=== PATIENT | female | born 1995 | race Caucasian/White ===

== ENCOUNTER 2017-09-07 01:15 | Emergency (ER) | payer OTHER, SELFPAY ==
[2017-09-07 01:20] VITALS: BP 135/69; PULSE 106; RESP 16; TEMP 36.6; O2SAT 99; BMI 29.2
--- NOTE | 2017-09-07 01:49 | HMH.EDEAR ---
ED Disposition Clinical Impression: Otitis media Qualifiers: Otitis media type: unspecified Chronicity: acute Qualified Code(s): H66.90 - Otitis media, unspecified, unspecified ear Disposition: Home, Self-Care Condition on Discharge: Good Instructions: DI for Ear Pain-Adult Additional Instructions: use meds and see pcp for follow up Prescriptions: cephALEXin [Keflex 500mg Cap] 500 mg PO TID #30 cap - Critical Care Critical Care Time: No Attestation: On 09/07/17, the high probability of a clinically significant, sudden or life threatening deterioration of the following system(s) required my full and direct attention, intervention and personal management. The time I documented below is in addition to time spent performing reported procedures but includes the following listed in this critical care notation. Medical Decision Making - Medical Records Medical records reviewed: Yes: I reviewed the patient's medical records. Vital Signs: 09/07/17 01:20 Temperature 97.8 F Temperature Source Oral Pulse Rate [Right Brachial] 106 H Respiratory Rate 16 Blood Pressure [Right Arm] 135/69 Blood Pressure Mean [Right Arm] 91 02 Sat by Pulse Oximetry 99 Oxygen Delivery Method Room Air - Alec Inquiry Pt receiving controlled substance: No Ear HPI - General Chief complaint: Ear Stated complaint: Pain in right ear Time Seen by Provider: 09/07/17 01:49 Mode of Arrival: Ambulatory Source of Information: Patient, Significant Other, Medical Record Limitations: No Limitations Description of Symptoms (Recalled from ER Triage Doc. by RN): RIGHT EAR PAIN - History of Present Illness HPI Narrative: over the last 3 days - pt with rt ear pain with no d/c MD Complaint: ear pain Location: right ear Duration: constant Severity: moderate Relieving factors: nothing Discharge from ear: no Treatment prior to arrival: none - Related Data Previous Rx's Medication Instructions Recorded cephALEXin [Keflex 500mg Cap] 500 mg PO TID #30 cap 09/07/17 Allergies Allergy/AdvReac Type Severity Reaction Status Date / Time latex [LATEX] Allergy Unknown Verified 09/07/17 01:25 [facility] History I have reviewed the patient's past medical history: Yes - *Social History Alcohol Intake: current Alcohol Intake Frequency:: a few times a month - Psychiatric History Expresses thoughts of harming self/others: None Suicide Plan Description: No Plan ROS Obtained: Yes All systems reviewed & no additional complaints - Constitutional Constitutional: Denies fever(s) - Eyes Eyes: Denies change in vision - ENT Ears, Nose, Mouth, and Throat: Reports as per HPI, Denies ear discharge, Reports otalgia, Denies sore throat - Cardiovascular Cardiovascular: Denies chest pain, Denies chest pain at rest - Respiratory Respiratory: No cough - Integumentary/Breasts Skin/Breast: Denies rash - Neurologic Neurologic: Denies dizziness Physical Exam - General General appearance: alert, in no apparent distress - Head Head exam: atraumatic - Eye Eye exam: Present: PERRL, EOMI - ENT ENT exam: Present: mucous membranes moist - Expanded ENT Exam External ear exam: Present: other (preauriculat carlene tenderness/parotid ok) TM/Canal exam: Left TM: erythema, Bilateral TM: effusion Throat exam: Present: normal inspection - Neck Neck exam: Present: trachea midline - Respiratory Respiratory exam: Absent: respiratory distress - Cardiovascular Cardiovascular exam: Present: regular rate - Neurological Exam Neurological exam: Present: alert, oriented X3, CN II-XII intact - Skin Skin exam: Absent: rash
--- NOTE | 2017-09-07 01:52 | ED_ITS ---
ED Disposition Clinical Impression: Otitis media Qualifiers: Otitis media type: unspecified Chronicity: acute Qualified Code(s): H66.90 - Otitis media, unspecified, unspecified ear Disposition: Home, Self-Care Condition on Discharge: Good Instructions: DI for Ear Pain-Adult Additional Instructions: use meds and see pcp for follow up Prescriptions: cephALEXin [Keflex 500mg Cap] 500 mg PO TID #30 cap - Critical Care Critical Care Time: No Attestation: On 09/07/17, the high probability of a clinically significant, sudden or life threatening deterioration of the following system(s) required my full and direct attention, intervention and personal management. The time I documented below is in addition to time spent performing reported procedures but includes the following listed in this critical care notation. Medical Decision Making - Medical Records Medical records reviewed: Yes: I reviewed the patient's medical records. Vital Signs: 09/07/17 01:20 Temperature 97.8 F Temperature Source Oral Pulse Rate [Right Brachial] 106 H Respiratory Rate 16 Blood Pressure [Right Arm] 135/69 Blood Pressure Mean [Right Arm] 91 02 Sat by Pulse Oximetry 99 Oxygen Delivery Method Room Air - Alec Inquiry Pt receiving controlled substance: No Ear HPI - General Chief complaint: Ear Stated complaint: Pain in right ear Time Seen by Provider: 09/07/17 01:49 Mode of Arrival: Ambulatory Source of Information: Patient, Significant Other, Medical Record Limitations: No Limitations Description of Symptoms (Recalled from ER Triage Doc. by RN): RIGHT EAR PAIN - History of Present Illness HPI Narrative: over the last 3 days - pt with rt ear pain with no d/c MD Complaint: ear pain Location: right ear Duration: constant Severity: moderate Relieving factors: nothing Discharge from ear: no Treatment prior to arrival: none - Related Data Previous Rx's Medication Instructions Recorded cephALEXin [Keflex 500mg Cap] 500 mg PO TID #30 cap 09/07/17 Allergies Allergy/AdvReac Type Severity Reaction Status Date / Time latex [LATEX] Allergy Unknown Verified 09/07/17 01:25 [facility] History I have reviewed the patient's past medical history: Yes - *Social History Alcohol Intake: current Alcohol Intake Frequency:: a few times a month - Psychiatric History Expresses thoughts of harming self/others: None Suicide Plan Description: No Plan ROS Obtained: Yes All systems reviewed & no additional complaints - Constitutional Constitutional: Denies fever(s) - Eyes Eyes: Denies change in vision - ENT Ears, Nose, Mouth, and Throat: Reports as per HPI, Denies ear discharge, Reports otalgia, Denies sore throat - Cardiovascular Cardiovascular: Denies chest pain, Denies chest pain at rest - Respiratory Respiratory: No cough - Integumentary/Breasts Skin/Breast: Denies rash - Neurologic Neurologic: Denies dizziness Physical Exam - General General appearance: alert, in no apparent distress - Head Head exam: atraumatic - Eye Eye exam: Present: PERRL, EOMI - ENT ENT exam: Present: mucous membranes moist - Expanded ENT Exam External ear exam: Present: other (preauriculat carlene tenderness/parotid ok) TM/Canal exam: Left TM: erythema, Bilateral
== END 2017-09-07 02:05 | disposition home or self-care (01) ==
PROVIDERS: Emergency Provider Emergency Medicine; Family Provider Nurse Practitioner Family
DX: H66.90 Otitis media, unspecified, unspecified ear (principal)
CPT/HCPCS: 99282

== ENCOUNTER 2017-10-31 20:14 | Observation (INO) | payer OTHER, SELFPAY ==
[2017-10-31 20:35] VITALS: BP 149/83; PULSE 92; RESP 20; TEMP 36.6; O2SAT 99; BMI 29.2
[2017-10-31 20:41] LABS: Apearance,Urine Clear (Clear); Color,Urine Yellow (Yellow); Specific Gravity, Urine >= 1.030 (1.005-1.030)
[2017-10-31 20:42] LABS: Bilirubin,Urine 1+ (Negative); Blood, Urine Trace (Negative); Glucose,Urine (UA) Negative (Negative); Ketones,Urine 15 (Negative); Protein,Urine 1+ (Negative); UTC Leukocyte Esterase,Urine Negative (Negative); UTC Nitrate,Urine Negative (Negative); Urobilinogen,Urine 0.2 EU/dl (0.2)
--- NOTE | 2017-10-31 20:46 | PC.NURSE ---
Triage nurse alerted me to pt's CC and u/a. PMHx kidney stones. Low back pain started last night. Radiating into abdomen. 600mg ibuprofen hasn't phased it . Hx tubal. LMP 2 weeks ago. No UTI symptoms. Pain 8/10, sharp. Discussed possible differentials and [facility] guidelines. Pt agreeable to transfer to ER. Report called to [facility]. Bed 9 available.
[2017-10-31 20:58] VITALS: BP 145/88; PULSE 89; RESP 20; TEMP 37.1; O2SAT 97; BMI 29.2
--- NOTE | 2017-10-31 21:03 | CT_ITS ---
CT abdomen pelvis wo con CLINICAL INDICATION: Abdominal tenderness and bloating, hematuria ITS.REASON: abd pain ORDERING PHYSICIAN: Cassius Cardenas MD PATIENT AGE: 22 years COMPARISON: 11/21/2015 TECHNIQUE: Axial images obtained with sagittal and coronal reformats. All CT scans at the facility use one or more dose reduction, viz: automated exposure control; ma/kV adjustment per patient size (including targeted exams where dose is matched to indication; i.e. head); or iterative reconstruction technique. PROCEDURE: Oral Contrast: None IV Contrast: None . FINDINGS: Lung bases are clear. The liver, gallbladder, spleen, adrenal glands, pancreas, and kidneys have an unremarkable unenhanced CT appearance. Unremarkable appendix. No pelvic mass or focal inflammatory change. Bilateral tubal ligation clips are present. The uterus is anteverted and slightly bulky. Isodensity in the left ovary may be related to ovarian cyst. Ultrasound performed. No acute bony anomalies. IMPRESSION: 1. No definite acute finding. 2. Possible left ovarian cyst
[2017-10-31 21:33] LABS: Basophils % 0.3 % (0.1-2.0); Eosinophils # 0.1 K/mm3 (0.0-0.4); Hematocrit 43.6 % (37.0-47.0); Hemoglobin 14.8 g/dL (12.2-16.2); Lymphocytes % 15.5 K/mm3 (10-50); Mean Corpuscular Hemoglobin 30.9 pg (27.0-31.2); Mean Corpuscular Volume 90.9 fl (81-99); Mean Platelet Volume 7.4 fl (7.4-10.4); Monocytes # 0.6 K/mm3 (0.1-1.0); Monocytes % 4.9 % (1.7-9.3); Neutrophils # 10.1 K/mm3 (1.8-7.8); Neutrophils % 78.2 % (37.0-80.0); Platelet Count 323 K/mm3 (142-424); Red Cell Distribution Width 12.6 % (11.5-17.5); White Blood Count 12.9 K/mm3 (4.8-10.8)
[2017-10-31 21:48] LABS: Lipase 126 u/L (73-393)
[2017-10-31 21:56] LABS: Alanine Aminotransferase 33 U/L (12-78); Albumin Level 4.1 gm/dL (3.4-5.0); Alkaline Phosphatase 96 U/L (46-116); Amylase 64 U/L (25-125); Anion Gap 15.4 mEq/L (5-15); Aspartate Amino Transferase 18 U/L (15-37); Bilirubin,Total 0.3 mg/dL (0.2-1.0); Blood Urea Nitrogen 17 mg/dL (7-18); Calcium 9.2 mg/dL (8.5-10.1); Carbon Dioxide 25 mmol/L (21.0-32.0); Chloride 102 mmol/L (98-107); Creatinine Clearance Estimated 151 mL/min (0-300); Estimated Glomerular Filt Rate 103 ml/min (>60); GFR (African American) 124 ML/MIN (>60); Globulin 4.1 gm/dl (1.3-3.2); Glucose 123 mg/dL (74-106); Potassium 3.4 mmoL/L (3.5-5.1); Sodium 139 mmol/L (136-145); Total Protein,Serum 8.2 gm/dL (6.4-8.2)
--- NOTE | 2017-10-31 22:37 | HMH.EDABDPAI ---
ED Disposition Clinical Impression: RLQ abdominal pain, Tubal ligation status, Dehydration Disposition: Home, Self-Care Condition on Discharge: Fair Instructions: DI for Acute Abdomen Referrals: Alpa Benjamin [Primary Care Provider] - - Critical Care Critical Care Time: No Attestation: On 10/31/17, the high probability of a clinically significant, sudden or life threatening deterioration of the following system(s) required my full and direct attention, intervention and personal management. The time I documented below is in addition to time spent performing reported procedures but includes the following listed in this critical care notation. Medical Decision Making - Alec Inquiry Pt receiving controlled substance: No Alec was queried for this patient: No Vital Signs: 10/31/17 20:35 10/31/17 20:58 Temperature 97.9 F 98.7 F Temperature Source Temporal Artery Scan Oral Pulse Rate [Brachial] 92 H 89 Respiratory Rate 20 20 Blood Pressure [Right Arm] 149/83 145/88 Blood Pressure Mean [Right Arm] 105 107 Blood Pressure Source [Right Arm] Automatic Cuff Blood Pressure Position [Right Arm] Sitting Sitting 02 Sat by Pulse Oximetry 99 97 - Lab Data Lab Results 10/31/17 20:38: Urine Color Yellow, Urine Appearance Clear, Urine pH 6.0, Ur Specific [place] >= 1.030, Urine Protein 1+, Urine Glucose (UA) Negative, Urine Ketones 15, Urine Blood Trace, Urine Nitrate Negative, Urine Bilirubin 1+ A, Urine Urobilinogen 0.2, Ur Leukocyte Esterase Negative 10/31/17 21:15: WBC 12.9 H, RBC 4.80, Hgb 14.8, Hct 43.6, MCV 90.9, MCH 30.9, MCHC 34.0, RDW 12.6, Plt Count 323, MPV 7.4, Neut % (Auto) 78.2, Lymph % (Auto) 15.5, [place] % (Auto) 4.9, Eos % (Auto) 1.0, Baso % (Auto) 0.3, Neut # (Auto) 10.1 H, Lymph # (Auto) 2.0, [place] # (Auto) 0.6, Eos # (Auto) 0.1, Baso # (Auto) 0.0 10/31/17 21:15: Sodium 139, Potassium 3.4 L, Chloride 102, Carbon Dioxide 25, Anion Gap 15.4 H, BUN 17, Creatinine 0.70, Estimated Creat Clear 151, Estimated GFR 103, Est GFR ( Amer) 124, Glucose 123 H, Calcium 9.2, Total Bilirubin 0.3, AST 18, ALT 33, Alkaline Phosphatase 96, Total Protein 8.2, Albumin 4.1, Globulin 4.1 H, Albumin/Globulin Ratio 1.0 L, Amylase 64 10/31/17 21:15: Lipase 126 Result diagrams: 10/31/17 21:15 10/31/17 21:15 Orders (Tests/Meds): ED MEDICATIONS Discontinued Medications Generic Name Dose Route Start Last Admin Trade Name Freq PRN Reason Stop Dose Admin Sodium Chloride 1,000 mls @ 999 mls/hr 10/31/17 21:15 10/31/17 21:14 Sod Chlor 0.9% 1000ml Bag IV 10/31/17 22:15 999 mls/hr .Q1H1M GLORIA Administration Ketorolac Tromethamine 30 mg 10/31/17 21:03 10/31/17 21:14 Toradol 30mg/Ml Vial IV 10/31/17 21:04 30 mg ONCE ONE Administration Ondansetron HCl 4 mg 10/31/17 21:03 10/31/17 21:14 Zofran 4mg/2ml Vial IV 10/31/17 21:04 4 mg ONCE ONE Administration ORDERS Category Date Time Status CT abdomen pelvis wo con Stat Cat Scan 10/31/17 21:03 Taken Urine Culture Stat Micro 10/31/17 20:30 Received - CT Data CT Scan: Abdomen, Pelvis Time Received: 22:48 Preliminary Findings: Normal/NAD Medical Decision Narrative: I discussed with Dr. Leal who agreed to admit the patient for observation repeat labs in the morning. Abdominal Pain HPI - General Chief Complaint: Abdominal Pain Stated Complaint: BACK PAIN AND STOMACH Time Seen by Provider: 10/31/17 22:00 Mode of Arrival: Family Vehicle Source of Information: Patient Limitations: No Limitations Description of Symptoms (Recalled from ER Triage Doc. by RN): lower back pain, abd pain and bloating, nausea - History of Present Illness HPI narrative: 22 years old white female with history of kidney stone who developed a right sided abdominal pain radiating to the right lower quadrant with no vomiting no diarrhea. She presented to the to the ED underwent a CT scan that was negative for kidney stone. She denies havin
--- NOTE | 2017-10-31 22:42 | ED_ITS ---
ED Disposition Clinical Impression: RLQ abdominal pain, Tubal ligation status, Dehydration Disposition: Home, Self-Care Condition on Discharge: Fair Instructions: DI for Acute Abdomen Referrals: Alpa Benjamin [Primary Care Provider] - - Critical Care Critical Care Time: No Attestation: On 10/31/17, the high probability of a clinically significant, sudden or life threatening deterioration of the following system(s) required my full and direct attention, intervention and personal management. The time I documented below is in addition to time spent performing reported procedures but includes the following listed in this critical care notation. Medical Decision Making - Alec Inquiry Pt receiving controlled substance: No Alec was queried for this patient: No Vital Signs: 10/31/17 20:35 10/31/17 20:58 Temperature 97.9 F 98.7 F Temperature Source Temporal Artery Scan Oral Pulse Rate [Brachial] 92 H 89 Respiratory Rate 20 20 Blood Pressure [Right Arm] 149/83 145/88 Blood Pressure Mean [Right Arm] 105 107 Blood Pressure Source [Right Arm] Automatic Cuff Blood Pressure Position [Right Arm] Sitting Sitting 02 Sat by Pulse Oximetry 99 97 - Lab Data Lab Results 10/31/17 20:38: Urine Color Yellow, Urine Appearance Clear, Urine pH 6.0, Ur Specific [place] >= 1.030, Urine Protein 1+, Urine Glucose (UA) Negative, Urine Ketones 15, Urine Blood Trace, Urine Nitrate Negative, Urine Bilirubin 1+ A, Urine Urobilinogen 0.2, Ur Leukocyte Esterase Negative 10/31/17 21:15: WBC 12.9 H, RBC 4.80, Hgb 14.8, Hct 43.6, MCV 90.9, MCH 30.9, MCHC 34.0, RDW 12.6, Plt Count 323, MPV 7.4, Neut % (Auto) 78.2, Lymph % (Auto) 15.5, [place] % (Auto) 4.9, Eos % (Auto) 1.0, Baso % (Auto) 0.3, Neut # (Auto) 10.1 H, Lymph # (Auto) 2.0, [place] # (Auto) 0.6, Eos # (Auto) 0.1, Baso # (Auto) 0.0 10/31/17 21:15: Sodium 139, Potassium 3.4 L, Chloride 102, Carbon Dioxide 25, Anion Gap 15.4 H, BUN 17, Creatinine 0.70, Estimated Creat Clear 151, Estimated GFR 103, Est GFR ( Amer) 124, Glucose 123 H, Calcium 9.2, Total Bilirubin 0.3, AST 18, ALT 33, Alkaline Phosphatase 96, Total Protein 8.2, Albumin 4.1, Globulin 4.1 H, Albumin/Globulin Ratio 1.0 L, Amylase 64 10/31/17 21:15: Lipase 126 Result diagrams: 10/31/17 21:15 10/31/17 21:15 Orders (Tests/Meds): ED MEDICATIONS Discontinued Medications Generic Name Dose Route Start Last Admin Trade Name Freq PRN Reason Stop Dose Admin Sodium Chloride 1,000 mls @ 999 mls/hr 10/31/17 21:15 10/31/17 21:14 Sod Chlor 0.9% 1000ml Bag IV 10/31/17 22:15 999 mls/hr .Q1H1M GLORIA Administration Ketorolac Tromethamine 30 mg 10/31/17 21:03 10/31/17 21:14 Toradol 30mg/Ml Vial IV 10/31/17 21:04 30 mg ONCE ONE Administration Ondansetron HCl 4 mg 10/31/17 21:03 10/31/17 21:14 Zofran 4mg/2ml Vial IV 10/31/17 21:04 4 mg ONCE ONE Administration ORDERS Category Date Time Status CT abdomen pelvis wo con Stat Cat Scan 10/31/17 21:03 Taken Urine Culture Stat Micro 10/31/17 20:30 Received - CT Data CT Scan: Abdomen, Pelvis Time Received: 22:48 Preliminary Findings: Normal/NAD Medical Decision Narrative: I discussed with Dr. Leal who agreed to admit the patient for observation repeat labs in the morning. Abdominal Pain HPI
[2017-10-31 22:51] VITALS: BP 127/70; PULSE 80; RESP 20; TEMP 36.6
[2017-10-31 23:15] VITALS: BP 118/71; PULSE 76; RESP 16; TEMP 36.7; O2SAT 99; BMI 29.9
[2017-11-01 04:12] VITALS: BP 99/49; PULSE 73; RESP 16; TEMP 36.6; O2SAT 98
--- NOTE | 2017-11-01 05:19 | PC.NURSE ---
Since admission pt has c/o mild abdominal and back pain, medicated per MAR. Lung sounds clear, BS active. VSS. No acute distress noted. Will continue to monitor.
[2017-11-01 07:02] LABS: Basophils % 0.3 % (0.1-2.0); Eosinophils # 0.1 K/mm3 (0.0-0.4); Eosinophils % 0.9 % (0.1-12.0); Hematocrit 39.3 % (37.0-47.0); Lymphocytes # 2.5 K/mm3 (0.7-4.5); Lymphocytes % 24.5 K/mm3 (10-50); Mean Corpuscular HGB Conc 33.1 g/dL (31.8-35.4); Mean Corpuscular Hemoglobin 30.7 pg (27.0-31.2); Mean Corpuscular Volume 92.7 fl (81-99); Mean Platelet Volume 7.6 fl (7.4-10.4); Monocytes # 0.6 K/mm3 (0.1-1.0); Monocytes % 6.1 % (1.7-9.3); Neutrophils # 6.9 K/mm3 (1.8-7.8); Platelet Count 286 K/mm3 (142-424); Red Blood Count 4.24 M/mm3 (4.20-5.40); Red Cell Distribution Width 12.6 % (11.5-17.5); White Blood Count 10.1 K/mm3 (4.8-10.8)
[2017-11-01 07:11] LABS: Blood Urea Nitrogen 15 mg/dL (7-18); Carbon Dioxide 28 mmol/L (21.0-32.0); Chloride 106 mmol/L (98-107); Creatinine Clearance Estimated 190 mL/min (0-300); Creatinine,Serum 0.57 mg/dL (0.55-1.02); Estimated Glomerular Filt Rate 130 ml/min (>60); GFR (African American) 158 ML/MIN (>60); Glucose 87 mg/dL (74-106); Sodium 137 mmol/L (136-145)
[2017-11-01 07:12] LABS: Hemoglobin 13.1 g/dL (12.2-16.2)
--- NOTE | 2017-11-01 07:32 | PC.NURSE ---
REPORT GIVEN TO Vira MORAES W/C
--- NOTE | 2017-11-01 07:38 | HMH.GSHP ---
HPI HPI: This is a 22-year-old female with a complex history of kidney stones who developed right-sided abdominal pain that increased significantly over the past 24 hours. She presented to the emergency department for further evaluation and management. Trace blood was noted on her urinalysis. Her white blood cell count was slightly elevated and she had tenderness in the right lower quadrant. A CT scan revealed no definitive sign of appendicitis and no definitive sign of renal stones. No hematuria. No dysuria. Nausea, but no emesis. No diarrhea or constipation. No fevers. [facility] History Medical History: Reports:: Heart Murmur (WHILE SHE WAS ) Denies:: Cancer, Diabetes Mellitus Type 1, Diabetes Mellitus Type 2, MRSA Laterality Cases: Bilateral: Tonsillectomy Other Surgeries: Yes: Tubal Ligation Amputation: No - *Social History Educational Level: Attended College Smoking Status: Current every day smoker Tobacco Type: cigarettes Alcohol Intake: current Alcohol Intake Frequency:: holidays/special occasions only Occupational Status: unemployed Housing: house Household Members: children - Psychiatric History Expresses thoughts of harming self/others: None Suicide Plan Description: No Plan *Family Hx:: Cancer, Coronary Artery Disease, Diabetes, Heart Attack, Hyperlipidemia, Hypertension, Stroke, Thyroid Disorder Review of Systems - Constitutional Denies anorexia - Eyes Denies change in vision - ENT Denies abnormal hearing - *Cardiovascular Denies chest pain - *Respiratory Denies cough - *Gastrointestinal Reports abdominal pain - *Genitourinary Denies abnormal vaginal bleeding, Denies painful urination, Denies urinary incontinence, Denies urinary urgency - Integumentary/Breasts Denies hair loss - *Neurologic Denies abnormal walking - Psychiatric Denies anxiety - Endocrine Denies cold intolerance - Hematologic/Lymphatic Denies easy bleeding - Allergic/Immunologic Denies GI upset with certain foods Meds Home Medications Medication Instructions Recorded Confirmed Type Fluoxetine HCl [Prozac 20mg 20 mg PO DAILY 10/31/17 10/31/17 History Capsule] Omeprazole Magnesium [Prilosec Otc 20 mg PO DAILY 10/31/17 10/31/17 History 20mg Tab] Thiamine Mononitrate [Vitamin B-1] 200 mg PO QODHS 10/31/17 10/31/17 History Allergies Allergy/AdvReac Type Severity Reaction Status Date / Time latex [LATEX] Allergy Unknown Verified 09/07/17 01:25 Exam Vital signs and Labs for Last 24 Hours: Temp Pulse Resp BP Pulse Ox 97.8 F 73 16 99/49 98 11/01/17 04:12 11/01/17 04:12 11/01/17 04:12 11/01/17 04:12 11/01/17 04:12 Laboratory Results - last 24 hr 11/01/17 06:30: WBC 10.1, RBC 4.24, Hgb 13.1 D, Hct 39.3, MCV 92.7, MCH 30.7, MCHC 33.1, RDW 12.6, Plt Count 286, MPV 7.6, Neut % (Auto) 68.0, Lymph % (Auto) 24.5, [place] % (Auto) 6.1, Eos % (Auto) 0.9, Baso % (Auto) 0.3, Neut # (Auto) 6.9, Lymph # (Auto) 2.5, [place] # (Auto) 0.6, Eos # (Auto) 0.1, Baso # (Auto) 0.0 11/01/17 06:30: Sodium 137, Potassium 4.0, Chloride 106, Carbon Dioxide 28, Anion Gap 7.0, BUN 15, Creatinine 0.57, Estimated Creat Clear 190, Estimated GFR 130, Est GFR ( Amer) 158 D, Glucose 87 D I & O for Last 24 hours: Intake & Output 10/29/17 10/30/17 10/31/17 11/01/17 11:59 11:59 11:59 11:59 Output Total 200 / 200 Balance -200 / -200 Weight 174 lb 4 oz - Constitutional no acute distress - *Routine Neck Exam Present: full ROM - *Routine Respiratory Exam Present: CTA bilaterally. Absent: respiratory distress - *Routine Cardiovascular Exam Present: RRR - *Routine Abdominal Exam Present: soft, tenderness. Absent: rebound, guarding Comments: mild to moderate TTP along right side - *Routine Extremities Exam Present: full ROM. Absent: cyanosis, clubbing, edema - *Routine Neurological Exam Present: alert, oriented X3 - Routine Psychiatric Exam Presen
--- NOTE | 2017-11-01 07:41 | P.CONPHA_ITS ---
[facility] Pharmacy VTE Monitoring - Patient Demographics Admission date: 10/31/17 Report Date: 11/01/17 Time: 07:40 Allergies/Adverse Reactions: Patient Allergies latex [LATEX] Allergy (Unknown, Verified 09/07/17 01:25) Height: 1.63 m Weight: 79.038 kg Patient Problems: Current Active Problems RLQ abdominal pain (Acute) Tubal ligation status (Acute) Dehydration (Acute) - VTE Risk Labs: VTE Related Lab Results Hgb 13.1 g/dL (12.2-16.2) D 11/01/17 06:30 Hct 39.3 % (37.0-47.0) 11/01/17 06:30 Plt Count 286 K/mm3 (142-424) 11/01/17 06:30 BUN 15 mg/dL (7-18) 11/01/17 06:30 Creatinine 0.57 mg/dL (0.55-1.02) 11/01/17 06:30 Estimated Creat Clear 190 mL/min (0-300) 11/01/17 06:30 VTE Score: 2 Clinical Trial Participant: No - Prophylaxis VTE Prophylaxis Ordered?: Yes Types of VTE Prophylaxis: TEDS Knee High Location of Applied Device: Bilateral Lower Extremeties
--- NOTE | 2017-11-01 07:42 | P.HP_ITS ---
HPI HPI: This is a 22-year-old female with a complex history of kidney stones who developed right-sided abdominal pain that increased significantly over the past 24 hours. She presented to the emergency department for further evaluation and management. Trace blood was noted on her urinalysis. Her white blood cell count was slightly elevated and she had tenderness in the right lower quadrant. A CT scan revealed no definitive sign of appendicitis and no definitive sign of renal stones. No hematuria. No dysuria. Nausea, but no emesis. No diarrhea or constipation. No fevers. [facility] History Medical History: Reports:: Heart Murmur (WHILE SHE WAS ) Denies:: Cancer, Diabetes Mellitus Type 1, Diabetes Mellitus Type 2, MRSA Laterality Cases: Bilateral: Tonsillectomy Other Surgeries: Yes: Tubal Ligation Amputation: No - *Social History Educational Level: Attended College Smoking Status: Current every day smoker Tobacco Type: cigarettes Alcohol Intake: current Alcohol Intake Frequency:: holidays/special occasions only Occupational Status: unemployed Housing: house Household Members: children - Psychiatric History Expresses thoughts of harming self/others: None Suicide Plan Description: No Plan *Family Hx:: Cancer, Coronary Artery Disease, Diabetes, Heart Attack, Hyperlipidemia, Hypertension, Stroke, Thyroid Disorder Review of Systems - Constitutional Denies anorexia - Eyes Denies change in vision - ENT Denies abnormal hearing - *Cardiovascular Denies chest pain - *Respiratory Denies cough - *Gastrointestinal Reports abdominal pain - *Genitourinary Denies abnormal vaginal bleeding, Denies painful urination, Denies urinary incontinence, Denies urinary urgency - Integumentary/Breasts Denies hair loss - *Neurologic Denies abnormal walking - Psychiatric Denies anxiety - Endocrine Denies cold intolerance - Hematologic/Lymphatic Denies easy bleeding - Allergic/Immunologic Denies GI upset with certain foods Meds Home Medications Medication Instructions Recorded Confirmed Type Fluoxetine HCl [Prozac 20mg 20 mg PO DAILY 10/31/17 10/31/17 History Capsule] Omeprazole Magnesium [Prilosec Otc 20 mg PO DAILY 10/31/17 10/31/17 History 20mg Tab] Thiamine Mononitrate [Vitamin B-1] 200 mg PO QODHS 10/31/17 10/31/17 History Allergies Allergy/AdvReac Type Severity Reaction Status Date / Time latex [LATEX] Allergy Unknown Verified 09/07/17 01:25 Exam Vital signs and Labs for Last 24 Hours: Temp Pulse Resp BP Pulse Ox 97.8 F 73 16 99/49 98 11/01/17 04:12 11/01/17 04:12 11/01/17 04:12 11/01/17 04:12 11/01/17 04:12 Laboratory Results - last 24 hr 11/01/17 06:30: WBC 10.1, RBC 4.24, Hgb 13.1 D, Hct 39.3, MCV 92.7, MCH 30.7, MCHC 33.1, RDW 12.6, Plt Count 286, MPV 7.6, Neut % (Auto) 68.0, Lymph % (Auto) 24.5, [place] % (Auto) 6.1, Eos % (Auto) 0.9, Baso % (Auto) 0.3, Neut # (Auto) 6.9 , Lymph # (Auto) 2.5, [place] # (Auto) 0.6, Eos # (Auto) 0.1, Baso # (Auto) 0.0 11/01/17 06:30: Sodium 137, Potassium 4.0, Chloride 106, Carbon Dioxide 28, Anion Gap 7.0, BUN 15, Creatinine 0.57, Estimated Creat Clear 190, Estimated GFR 130, Est GFR ( Amer) 158 D, Glucose 87 D I & O for Last 24 hours: Intake & Output 10/29/17 10/30/17 10/31/17 11/01/17 11:59 11:59 11:59 11:59
[2017-11-01 07:53] VITALS: O2SAT 98
--- NOTE | 2017-11-01 07:54 | PC.NURSE ---
report to a bout rn
[2017-11-01 08:00] VITALS: BP 107/58; PULSE 67; RESP 16; TEMP 36.6; O2SAT 98
--- NOTE | 2017-11-01 13:10 | P.DS_ITS ---
General - General Admission date: 10/31/17 Discharge date: 11/01/17 HPI HPI: This is a 22-year-old female with a complex history of kidney stones who developed right-sided abdominal pain that increased significantly over the past 24 hours. She presented to the emergency department for further evaluation and management. Trace blood was noted on her urinalysis. Her white blood cell count was slightly elevated and she had tenderness in the right lower quadrant. A CT scan revealed no definitive sign of appendicitis and no definitive sign of renal stones. No hematuria. No dysuria. Nausea, but no emesis. No diarrhea or constipation. No fevers. Hospital Course Hospital Course: The patient convalesced well. Her white blood cell count was normal in the morning of November 01. She was treated with Toradol for possible recently passed renal stone and her abdominal pain improved. She remained afebrile with stable and normal vital signs. She was deemed appropriate for discharge on the afternoon of November 01. Objective Vital signs: Temp Pulse Resp BP Pulse Ox 97.8 F 67 16 107/58 98 11/01/17 08:00 11/01/17 08:00 11/01/17 08:00 11/01/17 08:00 11/01/17 08:00 Results Labs on day of discharge: Labs from last 24 hours 11/01/17 11/01/17 06:30 06:30 WBC 10.1 RBC 4.24 Hgb 13.1 D Hct 39.3 MCV 92.7 MCH 30.7 MCHC 33.1 RDW 12.6 Plt Count 286 MPV 7.6 Neut % (Auto) 68.0 Lymph % (Auto) 24.5 [place] % (Auto) 6.1 Eos % (Auto) 0.9 Baso % (Auto) 0.3 Neut # (Auto) 6.9 Lymph # (Auto) 2.5 [place] # (Auto) 0.6 Eos # (Auto) 0.1 Baso # (Auto) 0.0 Sodium 137 Potassium 4.0 Chloride 106 Carbon Dioxide 28 Anion Gap 7.0 BUN 15 Creatinine 0.57 Estimated Creat Clear 190 Estimated GFR 130 Est GFR ( Amer) 158 D Glucose 87 D DS: Diagnosis - Discharge Diagnosis (1) RLQ abdominal pain Status: Acute Discharge Plan - Patient Discharge Instructions ACTIVITY: Continue current activity DIET: advance to your usual diet - Follow up Plan Follow up with: Cassius Cardenas MD [Staff Physician] - 11/06/17 Disposition: Home, Self-Halfway Medications: Home Medications Medication Instructions Recorded Confirmed Type Fluoxetine HCl [Prozac 20mg 20 mg PO DAILY 10/31/17 10/31/17 History Capsule] Omeprazole Magnesium [Prilosec Otc 20 mg PO DAILY 10/31/17 10/31/17 History 20mg Tab] Thiamine Mononitrate [Vitamin B-1] 200 mg PO QODHS 10/31/17 10/31/17 History Prescriptions/Medication Reconciliation: Continue Thiamine Mononitrate [Vitamin B-1] 200 mg PO QODHS Omeprazole Magnesium [Prilosec Otc 20mg Tab] 20 mg PO DAILY Fluoxetine HCl [Prozac 20mg Capsule] 20 mg PO DAILY
== END 2017-11-01 14:33 | disposition home or self-care (01) ==
LOC: UTC 20:18 → ER 20:50 → 2ND 22:54
PROVIDERS: Nurse Practitioner Family; Admitting Provider Surgery; Emergency Provider Emergency Medicine; Family Provider Nurse Practitioner Family; PCP Nurse Practitioner Family; Visit Provider Surgery
DX: N20.0 Calculus of kidney (principal); R10.31 Right lower quadrant pain; E86.0 Dehydration; Z87.442 Personal history of urinary calculi; Z91.040 Latex allergy status; F17.210 Nicotine dependence, cigarettes, uncomplicated; Z80.9 Family history of malignant neoplasm, unspecified; Z82.49 Family history of ischemic heart disease and other diseases of the circulatory system; Z83.3 Family history of diabetes mellitus; Z83.49 Family history of other endocrine, nutritional and metabolic diseases; Z82.3 Family history of stroke; Z79.899 Other long term (current) drug therapy
CPT/HCPCS: 36415; 74176; 80048; 80053; 81003; 82150; 83690; 85025; 87086; 96365; 96375; 99284; G0378; J2405

== ENCOUNTER 2017-11-03 02:45 | Emergency (ER) | payer OTHER, SELFPAY ==
[2017-11-03 02:46] VITALS: BP 145/85; PULSE 95; RESP 14; TEMP 36.7; O2SAT 97; BMI 29.8
[2017-11-03 03:07] LABS: Appearance,Urine CLEAR (Clear); Color,Urine YELLOW (Yellow); Glucose,Urine (UA) Negative (Negative); Microscopic, Urine URINE MICROSCOPIC (MICROSCOPIC); PH,Urine 5.5 (5.0-8.5); Protein,Urine Negative (Negative); Specific Gravity, Urine 1.025 (1.005-1.030)
[2017-11-03 03:08] LABS: Bilirubin,Urine Negative (Negative); Blood, Urine TRACE-I (Negative); Ketones,Urine Negative (Negative); Leukocyte Esterase,Urine 1+ (Negative); Nitrate,Urine Negative (Negative); Urobilinogen,Urine 0.2 EU/dl (0.2)
[2017-11-03 03:10] LABS: Urine Pregnancy, HCG Qual. Negative (Negative)
[2017-11-03 03:17] LABS: Basophils % 0.3 % (0.1-2.0); Eosinophils # 0.2 K/mm3 (0.0-0.4); Eosinophils % 1.9 % (0.1-12.0); Hematocrit 42.2 % (37.0-47.0); Hemoglobin 14.2 g/dL (12.2-16.2); Lymphocytes # 2.2 K/mm3 (0.7-4.5); Lymphocytes % 18.9 K/mm3 (10-50); Mean Corpuscular HGB Conc 33.7 g/dL (31.8-35.4); Mean Corpuscular Hemoglobin 30.9 pg (27.0-31.2); Mean Corpuscular Volume 91.6 fl (81-99); Mean Platelet Volume 7.2 fl (7.4-10.4); Monocytes # 0.7 K/mm3 (0.1-1.0); Neutrophils # 8.5 K/mm3 (1.8-7.8); Neutrophils % 72.9 % (37.0-80.0); Platelet Count 318 K/mm3 (142-424); Red Blood Count 4.61 M/mm3 (4.20-5.40); Red Cell Distribution Width 12.4 % (11.5-17.5); White Blood Count 11.7 K/mm3 (4.8-10.8)
[2017-11-03 03:19] LABS: Amorphous Sediment,Urine 1+ /lpf; Mucus,Urine 1+ /lpf; RBC,Urine Occasional #/hpf (0-3)
[2017-11-03 03:29] LABS: Alanine Aminotransferase 30 U/L (12-78); Alkaline Phosphatase 91 U/L (46-116); Amylase 49 U/L (25-125); Anion Gap 12.6 mEq/L (5-15); Aspartate Amino Transferase 19 U/L (15-37); Bilirubin,Total 0.2 mg/dL (0.2-1.0); Blood Urea Nitrogen 16 mg/dL (7-18); Calcium 9.1 mg/dL (8.5-10.1); Carbon Dioxide 27 mmol/L (21.0-32.0); Chloride 102 mmol/L (98-107); Creatinine Clearance Estimated 174 mL/min (0-300); Creatinine,Serum 0.62 mg/dL (0.55-1.02); Estimated Glomerular Filt Rate 118 ml/min (>60); GFR (African American) 143 ML/MIN (>60); Globulin 3.9 gm/dl (1.3-3.2); Glucose 136 mg/dL (74-106); Lipase 110 u/L (73-393); Potassium 3.6 mmoL/L (3.5-5.1); Sodium 138 mmol/L (136-145); Total Protein,Serum 7.9 gm/dL (6.4-8.2)
--- NOTE | 2017-11-03 03:32 | CT_ITS ---
CT abdomen pelvis wo con CLINICAL INDICATION: Constipation and nausea, localized lower abdominal pain ITS.REASON: abd/low back pain ORDERING PHYSICIAN: Anthony Carty MD PATIENT AGE: 22 years COMPARISON: 10/31/2017 TECHNIQUE: Axial images obtained with sagittal and coronal reformats. All CT scans at the facility use one or more dose reduction, viz: automated exposure control; ma/kV adjustment per patient size (including targeted exams where dose is matched to indication; i.e. head); or iterative reconstruction technique. PROCEDURE: Oral Contrast: None IV Contrast: None . FINDINGS: Lung bases are clear. The liver, gallbladder, spleen, adrenal glands, pancreas, kidneys, ureters, and urinary bladder have an unremarkable unenhanced appearance. Unremarkable appendix. Mild amount retained colonic feces. No intestinal obstruction, free air, or focal inflammatory change. Trace amount of free fluid in the pelvis. Bilateral tubal ligation clips are present. No pelvic mass or focal inflammatory change. No acute bony anomalies. Tiny umbilical hernia containing fat. IMPRESSION: 1. No acute finding. 2. Incidental nonacute findings as described above
--- NOTE | 2017-11-03 05:44 | HMH.EDNVD ---
ED Disposition Clinical Impression: Abdominal pain Qualifiers: Abdominal location: unspecified location Qualified Code(s): R10.9 - Unspecified abdominal pain Disposition: Home, Self-Care Condition on Discharge: Good Instructions: DI for Acute Abdomen Additional Instructions: see pcp for follow up Referrals: Alpa Benjamin [Primary Care Provider] - - Critical Care Critical Care Time: No Attestation: On 11/03/17, the high probability of a clinically significant, sudden or life threatening deterioration of the following system(s) required my full and direct attention, intervention and personal management. The time I documented below is in addition to time spent performing reported procedures but includes the following listed in this critical care notation. Medical Decision Making - Medical Records Medical records reviewed: Yes: I reviewed the patient's medical records. - Alec Inquiry Pt receiving controlled substance: No Vital Signs: 11/03/17 02:46 Temperature 98.1 F Temperature Source Oral Pulse Rate [Right Brachial] 95 H Respiratory Rate 14 Blood Pressure [Right Arm] 145/85 Blood Pressure Mean [Right Arm] 105 Blood Pressure Source [Right Arm] Automatic Cuff Blood Pressure Position [Right Arm] Sitting 02 Sat by Pulse Oximetry 97 Oxygen Delivery Method Room Air - Lab Data Lab results reviewed: Yes: I reviewed the patient's lab results. Lab Results 11/03/17 03:00: Urine Color Yellow, Urine Appearance Clear, Urine pH 5.5, Ur Specific [place] 1.025, Urine Protein Negative, Urine Glucose (UA) Negative, Urine Ketones Negative, Urine Blood Trace-i, Urine Nitrate Negative, Urine Bilirubin Negative, Urine Urobilinogen 0.2, Ur Leukocyte Esterase 1+ A, Urine RBC Occasional, Urine WBC 5-10, Ur Squamous Epith Cells 10-20, Amorphous Sediment 1+, Urine Mucus 1+ 11/03/17 03:00: WBC 11.7 H, RBC 4.61, Hgb 14.2, Hct 42.2, MCV 91.6, MCH 30.9, MCHC 33.7, RDW 12.4, Plt Count 318, MPV 7.2 L, Neut % (Auto) 72.9, Lymph % (Auto) 18.9, [place] % (Auto) 6.0, Eos % (Auto) 1.9, Baso % (Auto) 0.3, Neut # (Auto) 8.5 H, Lymph # (Auto) 2.2, [place] # (Auto) 0.7, Eos # (Auto) 0.2, Baso # (Auto) 0.0 11/03/17 03:00: Urine HCG, Qual Negative 11/03/17 03:00: Sodium 138, Potassium 3.6, Chloride 102, Carbon Dioxide 27, Anion Gap 12.6, BUN 16, Creatinine 0.62, Estimated Creat Clear 174, Estimated GFR 118, Est GFR ( Amer) 143, Glucose 136 H, Calcium 9.1, Total Bilirubin 0.2, AST 19, ALT 30, Alkaline Phosphatase 91, Total Protein 7.9, Albumin 4.0, Globulin 3.9 H, Albumin/Globulin Ratio 1.0 L, Amylase 49, Lipase 110 Result diagrams: 11/03/17 03:00 11/03/17 03:00 Orders (Tests/Meds): ORDERS Category Date Time Status CT abdomen pelvis wo con Stat Cat Scan 11/03/17 03:32 Taken Urine Culture Stat Micro 11/03/17 03:00 Received - CT Data CT Scan: Abdomen, Pelvis Time Received: 06:[address] Reviewed: Yes: I have viewed the radiologist's interpretation Preliminary Findings: Normal/NAD Nausea/Vomiting/Diarrhea HPI - General Chief complaint: Abdominal Pain Stated complaint: abdominal pain and lower back pain Time Seen by Provider: 11/03/17 05:44 Mode of Arrival: Ambulatory Source of Information: Patient, Medical Record Limitations: No Limitations Description of Symptoms (Recalled from ER Triage Doc. by RN): Pt c/o abd and lower back pain. Pt advises she was admitted with the same symptoms. C/o periods of nausea denies any vomiting/diarrhea - History of Present Illness HPI Narrative: pt with recent admit for pelvic pain with concern for kidney stone -pt was admitted over night and seen by surg -old ct and surg and ed visit reviewed MD complaint: nausea, abdominal pain Onset (ago): day(s) Location of pain: other (bilat back and pelvis pain) Severity: moderate - Related Data Home Medications Medication Instructions Recorded Confirmed Fluoxetine HCl [Prozac 20mg 20 mg PO DAILY 10/31/17 11/03/17 Capsule
--- NOTE | 2017-11-03 05:59 | ED_ITS ---
ED Disposition Clinical Impression: Abdominal pain Qualifiers: Abdominal location: unspecified location Qualified Code(s): R10.9 - Unspecified abdominal pain Disposition: Home, Self-Care Condition on Discharge: Good Instructions: DI for Acute Abdomen Additional Instructions: see pcp for follow up Referrals: Alpa Benjamin [Primary Care Provider] - - Critical Care Critical Care Time: No Attestation: On 11/03/17, the high probability of a clinically significant, sudden or life threatening deterioration of the following system(s) required my full and direct attention, intervention and personal management. The time I documented below is in addition to time spent performing reported procedures but includes the following listed in this critical care notation. Medical Decision Making - Medical Records Medical records reviewed: Yes: I reviewed the patient's medical records. - Alec Inquiry Pt receiving controlled substance: No Vital Signs: 11/03/17 02:46 Temperature 98.1 F Temperature Source Oral Pulse Rate [Right Brachial] 95 H Respiratory Rate 14 Blood Pressure [Right Arm] 145/85 Blood Pressure Mean [Right Arm] 105 Blood Pressure Source [Right Arm] Automatic Cuff Blood Pressure Position [Right Arm] Sitting 02 Sat by Pulse Oximetry 97 Oxygen Delivery Method Room Air - Lab Data Lab results reviewed: Yes: I reviewed the patient's lab results. Lab Results 11/03/17 03:00: Urine Color Yellow, Urine Appearance Clear, Urine pH 5.5, Ur Specific [place] 1.025, Urine Protein Negative, Urine Glucose (UA) Negative, Urine Ketones Negative, Urine Blood Trace-i, Urine Nitrate Negative, Urine Bilirubin Negative, Urine Urobilinogen 0.2, Ur Leukocyte Esterase 1+ A, Urine RBC Occasional, Urine WBC 5-10, Ur Squamous Epith Cells 10-20, Amorphous Sediment 1+, Urine Mucus 1+ 11/03/17 03:00: WBC 11.7 H, RBC 4.61, Hgb 14.2, Hct 42.2, MCV 91.6, MCH 30.9, MCHC 33.7, RDW 12.4, Plt Count 318, MPV 7.2 L, Neut % (Auto) 72.9, Lymph % (Auto ) 18.9, [place] % (Auto) 6.0, Eos % (Auto) 1.9, Baso % (Auto) 0.3, Neut # (Auto) 8.5 H, Lymph # (Auto) 2.2, [place] # (Auto) 0.7, Eos # (Auto) 0.2, Baso # (Auto) 0.0 11/03/17 03:00: Urine HCG, Qual Negative 11/03/17 03:00: Sodium 138, Potassium 3.6, Chloride 102, Carbon Dioxide 27, Anion Gap 12.6, BUN 16, Creatinine 0.62, Estimated Creat Clear 174, Estimated GFR 118, Est GFR ( Amer) 143, Glucose 136 H, Calcium 9.1, Total Bilirubin 0.2, AST 19, ALT 30, Alkaline Phosphatase 91, Total Protein 7.9, Albumin 4.0, Globulin 3.9 H, Albumin/Globulin Ratio 1.0 L, Amylase 49, Lipase 110 Result diagrams: 11/03/17 03:00 11/03/17 03:00 Orders (Tests/Meds): ORDERS Category Date Time Status CT abdomen pelvis wo con Stat Cat Scan 11/03/17 03:32 Taken Urine Culture Stat Micro 11/03/17 03:00 Received - CT Data CT Scan: Abdomen, Pelvis Time Received: 06:[address] Reviewed: Yes: I have viewed the radiologist's interpretation Preliminary Findings: Normal/NAD Nausea/Vomiting/Diarrhea HPI - General Chief complaint: Abdominal Pain Stated complaint: abdominal pain and lower back pain Time Seen by Provider: 11/03/17 05:44 Mode of Arrival: Ambulatory Source of Information: Patient, Medical Record Limitations: No Limitations Description of Symptoms (Recalled from ER Triage Doc. by RN): Pt c/o abd and lower back pain. Pt advises she was admitted with the same sym
[2017-11-03 06:37] VITALS: BP 117/80; PULSE 70; RESP 14; TEMP 37.1; O2SAT 98
== END 2017-11-03 06:38 | disposition home or self-care (01) ==
PROVIDERS: Emergency Provider Emergency Medicine; Family Provider Nurse Practitioner Family; PCP Nurse Practitioner Family
DX: R10.9 Unspecified abdominal pain (principal); M54.5 Low back pain; R01.1 Cardiac murmur, unspecified
CPT/HCPCS: 74176; 80053; 81001; 81025; 82150; 83690; 85025; 87086; 96365; 96367; 96375; 99283

== ENCOUNTER → 2018-06-18 07:41 | Outpatient (CLI) | payer OTHER, SELFPAY ==
[2018-06-18 07:45] LABS: Adenovirus,PCR Not Detected (NotDetected); Bordetella Pertussis Not Detected (NotDetected); Chlamydophila Pneumoniae, PCR Not Detected (NotDetected); Coronavirus 229E Not Detected (NotDetected); Coronavirus NL63 Not Detected (NotDetected); Coronavirus OC43 Not Detected (NotDetected); Coronovirus HKU1,PCR Not Detected (NotDetected); Human Metapneumovirus Not Detected (NotDetected); Influenza A, PCR Not Detected (NotDetected); Influenza AH1, 2009 Not Detected (NotDetected); Influenza AH1, PCR Not Detected (NotDetected); Influenza AH3,PCR Not Detected (NotDetected); Influenza B, PCR Not Detected (NotDetected); Mycoplasma Pneumoniae, PCR Not Detected (NotDected); Parainfluenza 1, PCR Not Detected (NotDetected); Parainfluenza 2, PCR Not Detected (NotDetected); Parainfluenza 3, PCR Not Detected (NotDetected); Parainfluenza 4, PCR Not Detected (NotDetected); Respiratory Syncytial Virus Not Detected (NotDetected); Rhinovirus/Enterovirus Not Detected (NotDetected)
== END ==
PROVIDERS: PCP Nurse Practitioner Family; Visit Provider Nurse Practitioner Family
DX: J02.9 Acute pharyngitis, unspecified (principal); R51 Headache
CPT/HCPCS: 87486; 87581; 87633; 87798

== ENCOUNTER → 2019-04-07 09:38 | Outpatient (CLI) | payer OTHER, SELFPAY ==
[2019-04-07 10:59] LABS: HCG,Quantitative 869 mIU/mL
[2019-04-09 12:36] LABS: Progesterone 16.8 ng/mL (.)
== END ==
PROVIDERS: Specialist; Visit Provider Nurse Practitioner Obstetrics & Gynecology
DX: Z34.90 Encounter for supervision of normal pregnancy, unspecified, unspecified trimester (principal)
CPT/HCPCS: 36415; 84144; 84702

== ENCOUNTER → 2019-04-14 12:41 | Outpatient (CLI) | payer OTHER, SELFPAY ==
--- NOTE | 2019-04-14 13:02 | US_ITS ---
PROCEDURE: US OB TRANSVAGINAL CLINICAL INDICATION: OB US TV for DATES in early COMPARISON: No exams were available for comparison TECHNIQUE: FINDINGS: There is an intrauterine gestational sac with yolk sac but no pole. 19 mm left ovarian cyst. IMPRESSION: Intrauterine gestational sac and yolk sac but no obvious pole. It may be too early to see a pole at this time. Suggest follow-up exam as well as correlation with beta HCG. Dictated by: Gideon Morin MD 04/14/2019 13:55 Signed by: <Electronically signed by Gideon Morin MD in [facility]> 04/14/2019 13:55
[2019-04-14 13:25] LABS: HCG,Quantitative 7872 mIU/mL
[2019-04-15 07:28] LABS: Progesterone 22.4 ng/mL (.)
== END ==
PROVIDERS: Specialist; Visit Provider Nurse Practitioner Obstetrics & Gynecology
DX: O26.841 Uterine size-date discrepancy, first trimester (principal)
CPT/HCPCS: 36415; 76817; 84144; 84702

== ENCOUNTER → 2019-04-20 10:10 | Outpatient (CLI) | payer OTHER, SELFPAY ==
[2019-04-20 11:18] LABS: Basophils % 0.2 % (0.1-2.0); Eosinophils # 0.2 K/mm3 (0.0-0.4); Eosinophils % 1.5 % (0.1-12.0); Hematocrit 39.2 % (37.0-47.0); Hemoglobin 13.3 g/dL (12.2-16.2); Lymphocytes % 19.9 % (10-50); Mean Corpuscular HGB Conc 33.8 g/dL (31.8-35.4); Mean Corpuscular Hemoglobin 31.3 pg (27.0-31.2); Mean Corpuscular Volume 92.7 fl (81-99); Mean Platelet Volume 7.1 fl (7.4-10.4); Monocytes # 0.5 K/mm3 (0.1-1.0); Neutrophils # 7.5 K/mm3 (1.8-7.8); Neutrophils % 73.4 % (37.0-80.0); Platelet Count 315 K/mm3 (142-424); Red Blood Count 4.23 M/mm3 (4.20-5.40); Red Cell Distribution Width 12.3 % (11.5-17.5); White Blood Count 10.2 K/mm3 (4.8-10.8)
[2019-04-21 07:09] LABS: HIV Screen 4th Generation wRfx Non Reactive (Non Reactive)
[2019-04-21 10:33] LABS: Progesterone 24.1 ng/mL (.)
[2019-04-21 10:33] LABS: Hepatitis B Surface Antigen Negative (Negative); Hepatitis C Antibody <0.1 s/co ratio (0.0-0.9); Rapid Plasma Reagin Ab Titer Non Reactive (NonRea<1:1); Rubella Antibodies, IgG 1.09 index (Immune >0.99)
== END ==
PROVIDERS: Nurse Practitioner Obstetrics & Gynecology; Visit Provider Specialist
DX: Z34.90 Encounter for supervision of normal pregnancy, unspecified, unspecified trimester (principal)
CPT/HCPCS: 36415; 84144; 84702; 85025; 86592; 86703; 86762; 86850; 87340; 87380; G0432

== ENCOUNTER → 2019-04-28 14:43 | Outpatient (CLI) | payer OTHER, SELFPAY ==
[2019-04-28 16:40] LABS: HCG,Quantitative 58774 mIU/mL
[2019-04-30 06:14] LABS: Progesterone 21.8 ng/mL (.)
== END ==
PROVIDERS: Visit Provider Specialist
DX: O09.91 Supervision of high risk pregnancy, unspecified, first trimester (principal)
CPT/HCPCS: 36415; 84144; 84702

== ENCOUNTER → 2019-07-28 14:48 | Outpatient (CLI) | payer OTHER, SELFPAY ==
--- NOTE | 2019-07-28 14:48 | US_ITS ---
PROCEDURE: US OB /MATERNAL DETAIL CLINICAL INDICATION: US OB Complete COMPARISON: US OB TRANSVAGINAL from 04/14/2019 FINDINGS: There is a single live fetus present in cephalic presentation with an FHR of 139 beats per minute. Following parameters are obtained BPD 21 weeks 0 days, OFD 21 weeks 5 days, HC 20 weeks 5 days, AC 18 weeks 4 days, FL 18 weeks 2 days, cerebellum 19 weeks 2 days, humerus 18 weeks 1 day. Average ultrasound age is 19 weeks 5 days. Estimated weight is 252 g which is 2 percentile. The cervix is closed at 4.9 cm. 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 Thorough evaluation of these abnormalities is beyond the scope of this ultrasound lab and referral to however risk OB is suggested. HC/AC is 1.4 CI is 0.76 FL/BPD is 0.55 FL/AC is 0.21 IMPRESSION: Live IUP and 19 weeks 2 days. Multiple anomalies. Referral to high reach operator suggested. Dictated by: Gideon Morin MD 08/02/2019 19:58 Electronically signed by Gideon Morin MD in [facility] 08/02/2019 19:58
== END ==
PROVIDERS: PCP Nurse Practitioner Family; Visit Provider Nurse Practitioner Obstetrics & Gynecology
DX: Z36.0 Encounter for antenatal screening for chromosomal anomalies (principal)
CPT/HCPCS: 76805; 76811

== ENCOUNTER → 2019-11-10 15:42 | Outpatient (CLI) | payer OTHER, SELFPAY ==
[2019-11-10 16:23] LABS: HCG,Quantitative 11 mIU/ml (0-5.42)
[2019-11-12 10:30] LABS: Progesterone 14.6 ng/mL (.)
== END ==
PROVIDERS: Visit Provider Specialist
DX: O09.91 Supervision of high risk pregnancy, unspecified, first trimester (principal)
CPT/HCPCS: 36415; 84144; 84702

== ENCOUNTER → 2019-11-12 09:02 | Outpatient (CLI) | payer OTHER, SELFPAY ==
[2019-11-12 13:02] LABS: HCG,Quantitative 35 mIU/ml (0-5.42)
== END ==
PROVIDERS: Visit Provider Nurse Practitioner Obstetrics & Gynecology
DX: Z34.90 Encounter for supervision of normal pregnancy, unspecified, unspecified trimester (principal)
CPT/HCPCS: 36415; 84702

== ENCOUNTER → 2019-11-17 10:29 | Outpatient (CLI) | payer OTHER, SELFPAY ==
[2019-11-17 11:10] LABS: HCG,Quantitative 257 mIU/ml (0-5.42)
[2019-11-18 07:33] LABS: Progesterone 32.3 ng/mL (.)
== END ==
PROVIDERS: Visit Provider Specialist
DX: O09.91 Supervision of high risk pregnancy, unspecified, first trimester (principal)
CPT/HCPCS: 36415; 84144; 84702

== ENCOUNTER 2019-11-22 10:41 | Emergency (ER) | payer OTHER, SELFPAY ==
[2019-11-22 10:52] VITALS: BP 155/86; PULSE 114; RESP 16; TEMP 37; O2SAT 98; BMI 32.1
--- NOTE | 2019-11-22 11:00 | PC.NURSE ---
ANIVAL AT BEDSIDE WITH DR PAGE FOR RECTAL EXAM
--- NOTE | 2019-11-22 11:01 | US_ITS ---
PROCEDURE: US OB TRANSVAGINAL CLINICAL INDICATION: lower abdominal pain, COMPARISON: US OB /MATERNAL DETAIL from 07/28/2019 FINDINGS: There is a small intrauterine gestational sac with decidual reaction. There is a tiny yolk sac visible however I do not see a definite pole or echoes to obtain a crown-rump length. No cardiac activity is visible as yet. Both ovaries appear grossly normal. IMPRESSION: Very early intrauterine gestation suggest follow-up study in 2-3 weeks to evaluate for dates and viability. Dictated by: Dr. Meño Calderon MD 11/22/2019 15:[address] Meño Calderon MD in [facility] 11/22/2019 15:29
--- NOTE | 2019-11-22 11:02 | HMH.EDGENADL ---
ED Disposition Clinical Impression: Abdominal pain affecting UTI in Qualifiers: Trimester: first trimester Qualified Code(s): O23.41 - Unspecified infection of urinary tract in , first trimester Disposition: Home, Self-Care Condition on Discharge: Good Instructions: DI for Urinary Tract Infection (UTI), DI for -- Discomforts and Remedies Additional Instructions: You have been evaluated for abdominal pain in , diarrhea. We have found a urinary tract infection. Please take Macrobid as prescribed. Please establish with an OB doctor in the next few days. If you continue have diarrhea, you should send a stool study through your primary care doctor. Return to the emergency department if you have new or worsening symptoms, fevers, chills, uncontrolled vomiting. Prescriptions: nitrofurantoin macrocrystaL [Macrodantin 100mg capsule] 100 mg PO BID 5 Days #10 cap Prescription Printed Referrals: Angela Guzman [Primary Care Provider] - Time of Disposition: 12:36 - Critical Care Critical Care Time: No Attestation: On 11/22/19, the high probability of a clinically significant, sudden or life threatening deterioration of the following system(s) required my full and direct attention, intervention and personal management. The time I documented below is in addition to time spent performing reported procedures but includes the following listed in this critical care notation. Medical Decision Making - Alec Inquiry Pt receiving controlled substance: No Vital Signs: 11/22/19 10:52 Temperature 98.6 F Temperature Source Oral Pulse Rate [Left Radial] 114 H Respiratory Rate 16 Blood Pressure [Right Arm] 155/86 H Blood Pressure Mean [Right Arm] 109 Blood Pressure Position [Right Arm] Sitting 02 Sat by Pulse Oximetry 98 Oxygen Delivery Method Room Air - Lab Data Lab Results 11/22/19 10:55: WBC 10.9 H, RBC 4.47, Hgb 13.7, Hct 40.9, MCV 91.5, MCH 30.7, MCHC 33.6, RDW 13.2, Plt Count 333, MPV 7.9, Neut % (Auto) 74.2, Lymph % (Auto) 17.9, [place] % (Auto) 5.4, Eos % (Auto) 2.1, Baso % (Auto) 0.3, Neut # (Auto) 8.1 H, Lymph # (Auto) 2.0, [place] # (Auto) 0.6, Eos # (Auto) 0.2, Baso # (Auto) 0.0 11/22/19 10:55: Sodium 136, Potassium 3.9, Chloride 106, Carbon Dioxide 22, Anion Gap 11.9, BUN 9, Creatinine 0.50 L, Estimated Creat Clear 228, Estimated GFR 149, Est GFR ( Amer) 180, Glucose 113 H, Calcium 9.7, Total Bilirubin 0.3, AST 40 H, ALT 51, Alkaline Phosphatase 70, Total Protein 7.5, Albumin 4.4, Globulin 3.1, Albumin/Globulin Ratio 1.4 11/22/19 10:55: HCG, Quant 3093 H 11/22/19 10:55: Lipase 57 11/22/19 10:59: Urine Color Yellow, Urine Appearance Clear, Urine pH 8.5, Ur Specific [place] 1.025, Urine Protein Negative, Urine Glucose (UA) Negative, Urine Ketones Negative, Urine Blood Negative, Urine Nitrate Negative, Urine Bilirubin Negative, Urine Urobilinogen 0.2, Ur Leukocyte Esterase Trace, Urine RBC 3-5, Urine WBC 3-5, Ur Squamous Epith Cells 10-20, Urine Bacteria 1+ 11/22/19 11:14: Blood Type A Negative, Antibody Screen Negative Result diagrams: 11/22/19 10:55 11/22/19 10:55 Orders (Tests/Meds): ORDERS Category Date Time Status Diarrhea 23 Panel, PCR Stat Lab 11/22/19 10:59 Ordered US OB transvaginal Stat Ultrasound 11/22/19 11:01 Taken Medical Decision Narrative: In summary this is a 24-year-old female presenting to the emergency department with cramping lower abdominal pain and bloody stools. Patient is overall well-appearing on arrival to the emergency department. She is tachycardic, though says she is anxious. He is hypertensive. Differential diagnoses were abdominal pain include normal intrauterine , ectopic , variant cyst, irritable bowel syndrome, constipation, hemorrhoids. My concern for Salmonella or Shigella is low. Plan to obtain CBC, CMP, and screen, urinalysis, quantitative test, stool studies, transvaginal ultrasound.
[2019-11-22 11:05] LABS: Microscopic, Urine URINE MICROSCOPIC (MICROSCOPIC)
[2019-11-22 11:07] LABS: Basophils % 0.3 % (0.1-2.0); Eosinophils # 0.2 K/mm3 (0.0-0.4); Eosinophils % 2.1 % (0.1-12.0); Hematocrit 40.9 % (37.0-47.0); Hemoglobin 13.7 g/dL (12.2-16.2); Lymphocytes % 17.9 % (10-50); Mean Corpuscular HGB Conc 33.6 g/dL (31.8-35.4); Mean Corpuscular Hemoglobin 30.7 pg (27.0-31.2); Mean Corpuscular Volume 91.5 fl (81-99); Mean Platelet Volume 7.9 fl (7.4-10.4); Monocytes # 0.6 K/mm3 (0.1-1.0); Monocytes % 5.4 % (1.7-9.3); Neutrophils # 8.1 K/mm3 (1.8-7.8); Neutrophils % 74.2 % (37.0-80.0); Platelet Count 333 K/mm3 (142-424); Red Blood Count 4.47 M/mm3 (4.20-5.40); Red Cell Distribution Width 13.2 % (11.5-17.5); White Blood Count 10.9 K/mm3 (4.8-10.8)
[2019-11-22 11:09] LABS: Appearance,Urine CLEAR (Clear); Bilirubin,Urine Negative (Negative); Blood, Urine Negative (Negative); Color,Urine YELLOW (Yellow); Glucose,Urine (UA) Negative (Negative); Ketones,Urine Negative (Negative); Leukocyte Esterase,Urine TRACE (Negative); Nitrate,Urine Negative (Negative); PH,Urine 8.5 (5.0-8.5); Protein,Urine Negative (Negative); Specific Gravity, Urine 1.025 (1.005-1.030); Urobilinogen,Urine 0.2 EU/dl (0.2)
[2019-11-22 11:11] LABS: Chloride 106 mmol/L (98-107); Potassium 3.9 mmoL/L (3.5-5.1); Sodium 136 mmol/L (136-145)
[2019-11-22 11:14] LABS: Alanine Aminotransferase 51 U/L (12-78); Albumin Level 4.4 g/dl (3.5-5.0); Albumin/Globulin Ratio 1.4 (1.1-1.8); Alkaline Phosphatase 70 U/L (38-126); Anion Gap 11.9 mEq/L (5-15); Aspartate Amino Transferase 40 U/L (14-36); Bilirubin,Total 0.3 mg/dl (0.2-1.3); Blood Urea Nitrogen 9 mg/dl (7-17); Calcium 9.7 mg/dl (8.4-10.2); Carbon Dioxide 22 mmol/L (22.0-30.0); Creatinine Clearance Estimated 228 mL/min (50-200); Estimated Glomerular Filt Rate 149 ml/min (>60); GFR (African American) 180 ML/MIN (>60); Globulin 3.1 g/dL (1.3-3.2); Glucose 113 mg/dl (74-100); Total Protein,Serum 7.5 g/dl (6.3-8.2)
[2019-11-22 11:15] LABS: Bacteria,Urine 1+ /lpf
[2019-11-22 11:19] LABS: Lipase 57 U/L (23-300)
[2019-11-22 11:32] LABS: HCG,Quantitative 3093 mIU/ml (0-5.42)
[2019-11-22 13:34] VITALS: BP 132/74; PULSE 68; RESP 16; TEMP 36.6; O2SAT 98
== END 2019-11-22 13:36 | disposition home or self-care (01) ==
PROVIDERS: Emergency Provider Emergency Medicine; PCP Nurse Practitioner Family
DX: O23.41 Unspecified infection of urinary tract in pregnancy, first trimester (principal); Z91.040 Latex allergy status; R01.1 Cardiac murmur, unspecified; Z87.442 Personal history of urinary calculi; Z90.89 Acquired absence of other organs; Z72.0 Tobacco use; Z80.9 Family history of malignant neoplasm, unspecified; Z83.3 Family history of diabetes mellitus; Z82.49 Family history of ischemic heart disease and other diseases of the circulatory system; Z82.3 Family history of stroke; Z83.438 Family history of other disorder of lipoprotein metabolism and other lipidemia; Z83.49 Family history of other endocrine, nutritional and metabolic diseases
CPT/HCPCS: 36415; 76817; 80053; 81001; 83690; 84702; 85025; 86850; 96365; 96372; 99283; J2790

== ENCOUNTER → 2019-11-24 10:44 | Outpatient (CLI) | payer OTHER, SELFPAY ==
[2019-11-24 11:28] LABS: HCG,Quantitative 6924 mIU/ml (0-5.42)
[2019-11-26 07:19] LABS: Progesterone 20.4 ng/mL (.)
== END ==
PROVIDERS: Visit Provider Specialist
DX: O09.91 Supervision of high risk pregnancy, unspecified, first trimester (principal)
CPT/HCPCS: 36415; 84144; 84702

== ENCOUNTER → 2019-11-28 11:05 | Outpatient (CLI) | payer OTHER, SELFPAY ==
[2019-11-28 12:32] LABS: HCG,Quantitative 22497 mIU/ml (0-5.42)
[2019-11-29 08:22] LABS: Progesterone 34.2 ng/mL (.)
== END ==
PROVIDERS: Visit Provider Specialist
DX: O09.91 Supervision of high risk pregnancy, unspecified, first trimester (principal)
CPT/HCPCS: 36415; 84144; 84702

== ENCOUNTER → 2019-12-01 17:18 | Outpatient (CLI) | payer OTHER, SELFPAY ==
[2019-12-03 10:31] LABS: Progesterone 18.7 ng/mL (.)
== END ==
PROVIDERS: Visit Provider Specialist
DX: O09.91 Supervision of high risk pregnancy, unspecified, first trimester (principal)
CPT/HCPCS: 36415; 84144; 84702

== ENCOUNTER → 2019-12-09 08:41 | Outpatient (CLI) | payer OTHER, SELFPAY ==
[2019-12-09 10:18] LABS: HCG,Quantitative 104240 mIU/ml (0-5.42)
[2019-12-11 09:22] LABS: Progesterone 26.1 ng/mL (.)
== END ==
PROVIDERS: Visit Provider Specialist
DX: O09.91 Supervision of high risk pregnancy, unspecified, first trimester (principal)
CPT/HCPCS: 36415; 84144; 84702

== ENCOUNTER 2021-02-19 15:30 | Emergency (ER) | payer OTHER, SELFPAY ==
[2021-02-19 16:40] VITALS: BP 130/80; PULSE 87; RESP 21; TEMP 36.4; O2SAT 97; BMI 35.2
--- NOTE | 2021-02-19 17:24 | HMH.EDUTC ---
[facility] [place] Disposition Clinical Impression: Viral upper respiratory illness Disposition: Home, Self-Care Condition on Discharge: Good Instructions: Sore Throat, DI for Viral Upper Respiratory Infection -- Adult, Fluticasone Nasal [place] Additional Instructions: *Monitor Temp, Over the counter Motrin or Tylenol as directed/as needed Tylenol every 4 hours and Motrin every 6 hours (as long as your family doctor has told you that you can take it) for fever or pain. and straight to ER if unable to lower temp less than 101.0 after medication given *Warm salt water gargles may help to soothe the throat *Throat Lozenges *Warm fluids like tea with honey may help to soothe the throat *Sleep elevated *Humidifier/Vaporizer *Flonase 2 sprays in each nostril daily but be aware that it may take 2-3 days before you notice improvement Your throat swab was sent for culture. Those results are typically sent to your primary care. Be sure to follow up in 2-3 days with your family doctor/primary care physician if no improvement so they can review those result and treat if necessary. If you don?t have a primary care doctor, I recommend you get one but in the mean time, you will have to return to a walk in clinic Make sure that you are drinking plenty of fluids with Mucinex Follow up IMMEDIATELY for new or worsening symptoms or no Noticeable improvement over the next 48-72 hours. 911 for difficulty breathing or swallowing Prescriptions: Fluticasone Propionate [Flonase 50mcg nasal spray 16gm] 1 spr NS DAILY #1 bottle Transmission Status: Pending to [employer] [facility] guaiFENesin [Mucinex 600mg tablet] 1 - 2 tab PO Q12H PRN #20 tab.er.12h PRN Reason: Cough Transmission Status: Pending to [facility] Referrals: Angela Guzman [Primary Care Provider] - As needed Time of Disposition: 17:41 Medical Decision Making - Alec Inquiry Pt receiving controlled substance: No Alec was queried for this patient: No Vital Signs: 02/19/21 16:40 Temperature 97.6 F Temperature Source Oral Pulse Rate [Right Brachial] 87 Respiratory Rate 21 Blood Pressure [Right Arm] 130/80 Blood Pressure Mean [Right Arm] 96 Blood Pressure Source [Right Arm] Automatic Cuff Blood Pressure Position [Right Arm] Sitting 02 Sat by Pulse Oximetry 97 Oxygen Delivery Method Room Air - Lab Data Lab results reviewed: Yes: I reviewed the patient's lab results. Lab Results 02/19/21 17:13: Strep [facility] Negative Orders (Tests/Meds): ORDERS Category Date Time Status Strep Screen Confirmation Stat Micro 02/19/21 17:13 Received [facility] [place] HPI - General Stated complaint: cough, sore throat, sneezing Time Seen by Provider: 02/19/21 17:24 Mode of Arrival: Ambulatory Source of Information: Patient Limitations: No Limitations Description of Symptoms (Recalled from Triage Doc. by RN): PATIENT C/O COUGH, SNEEZING, CHEST TIGHTNESS, SOR THROAT, AND RUNNY NOSE HEENT Symptoms (Recalled from RN notes): Yes Resp Symptoms (Recalled from RN notes): No Skin Symptoms (Recalled from RN notes): No MS Symptoms (Recalled from RN notes): No Functional Status (Recalled from RN notes): WNL - History of Present Illness Provider Complaint: Patient states that her son recently had strep throat States that she has been having nasal congestion, cough, sore throat and feels like the drainage is trying to move into her chest States that she isnt coughing anything up and not had a fever that she is aware of - Related Data Home Medications Medication Instructions Recorded Confirmed lactobacillus combination no.9 4 PO DAILY cap 04/14/20 04/14/20 billion cell capsule Previous Rx's Medication Instructions Recorded amoxicillin 250 mg/5 mL oral 500 mg PO Q12H 10 Days #200 ml 04/14/20 suspension Fluticasone Propionate [Flonase 1 spr NS DAILY #1 bottle 02/19/21 50mcg nasal spray 16gm] guaiFENesin [Mucinex 600mg tablet] 1 - 2 tab PO Q12H PRN #20 02/19/21 tab.er.12
[2021-02-19 17:33] LABS: UTC Strep Screen (Rapid) Negative (Negative)
[2021-02-19 17:45] VITALS: BP 130/80; PULSE 87; RESP 21; TEMP 36.4; O2SAT 97
== END 2021-02-19 17:50 | disposition home or self-care (01) ==
PROVIDERS: Emergency Provider Nurse Practitioner; PCP Nurse Practitioner Family
DX: J06.9 Acute upper respiratory infection, unspecified (principal); Z91.040 Latex allergy status; F17.210 Nicotine dependence, cigarettes, uncomplicated
CPT/HCPCS: 87880; 99202; G0463

== ENCOUNTER → 2021-08-15 11:16 | Outpatient (CLI) | payer OTHER, SELFPAY ==
--- NOTE | 2021-08-15 11:21 | XR_ITS ---
FINAL REPORT CLINICAL HISTORY: LT KNEE PAIN FINDINGS: LEFT KNEE Four views of the left knee were obtained. There is no acute fracture or dislocation. Visualized joint spaces are normally aligned. Soft tissues are unremarkable. IMPRESSION: No acute bony abnormality. Reviewed, Interpreted and Dictated by Eldon George MD Transcribed by Anne Zaragoza Authenticated by Eldon George MD on 08/16/2021 08:12:38 AM [facility]
== END ==
PROVIDERS: PCP Nurse Practitioner; Visit Provider Nurse Practitioner
DX: M25.562 Pain in left knee (principal)
CPT/HCPCS: 73562

== ENCOUNTER 2022-01-31 15:07 | Emergency (ER) | payer OTHER, SELFPAY ==
--- NOTE | 2022-01-31 15:14 | HMH.EDUTC ---
[facility] [place] Clinical Impression: Laceration of right index finger Qualifiers: Encounter type: initial encounter Damage to nail status: without damage Foreign body presence: without foreign body Qualified Code(s): S61.210A - Laceration without foreign body of right index finger without damage to nail, initial encounter Disposition: Home, Self-Care Condition on Discharge: Good Instructions: How to Care for a Laceration After Repair, Laceration Repair, DI for Laceration Repair -- Simple Additional Instructions: Keep the wound clean and dry. Keep a dressing on it if you are going to be getting it dirty. Watch the for signs of infection, such as redness, swelling, drainage, fever. etc. Take tylenol or ibuprofen for pain. Follow up with your regular doctor. Return in 10 days to have the sutures removed. GO TO THE ER FOR ANY WORSENING SYMPTOMS OR CONCERNS. Prescriptions: cephALEXin [cephALEXin 500mg capsule] 500 mg PO Q6H 10 Days #40 cap Transmission Status: Received by [facility] Referrals: Mali Salgado APRN [Primary Care Provider] - Time of Disposition: 16:25 Medical Decision Making - Medical Records Medical records reviewed: No: I reviewed the patient's medical records. - Alec Inquiry Pt receiving controlled substance: No Vital Signs: 01/31/22 15:25 01/31/22 16:33 Temperature 99.3 F 99.3 F Temperature Source Oral Pulse Rate 120 H Pulse Rate [Left Radial] 120 H Respiratory Rate 20 20 Blood Pressure 157/87 H Blood Pressure [Right Arm] 157/87 H Blood Pressure Mean [Right Arm] 110 02 Sat by Pulse Oximetry 96 [facility] [place] - General Stated complaint: AO 01/31 @1600 LAC R finger Time Seen by Provider: 01/31/22 15:14 - History of Present Illness Provider Complaint: She was using a knife to cut some bread when she slipped and cut the end of her right index finger. She has a laceration near its tip. She denies any other injury. Her tetanus immunization is up to date. - Related Data Home Medications Medication Instructions Recorded Confirmed lactobacillus combination no.9 4 PO DAILY cap 04/14/20 04/14/20 billion cell capsule Previous Rx's Medication Instructions Recorded amoxicillin 250 mg/5 mL oral 500 mg PO Q12H 10 Days #200 ml 09/03/20 suspension Fluticasone Propionate [Flonase 1 spr NS DAILY #1 bottle 02/19/21 50mcg nasal spray 16gm] guaiFENesin [Mucinex 600mg tablet] 1 - 2 tab PO Q12H PRN #20 02/19/21 tab.er.12h cephALEXin [cephALEXin 500mg 500 mg PO Q6H 10 Days #40 cap 01/31/22 capsule] Allergies Allergy/AdvReac Type Severity Reaction Status Date / Time latex [LATEX] Allergy Unknown Verified 01/31/22 15:28 [facility] History - Hepatitis A Screen Attestation statement:: This patient has been screened for Hepatitis A risk factors. I have reviewed the patient's past medical history: Yes Medical History: Reports:: Heart Murmur, Kidney Stones Denies:: Cancer, Diabetes Mellitus Type 1, Diabetes Mellitus Type 2, MRSA Comment: Kidney Stent 2013 Laterality Cases: Bilateral: Tonsillectomy Other Surgeries: Yes: Tubal Ligation, Other Amputation: No Fractures: No Comment: Tubal reversal 02/2019. sinus surgery 2004 - Social History Smoking Status: Current every day smoker Tobacco Type: cigarettes (half pack per day) # Packs/Day (cigarettes): 0 Alcohol Intake: never Alcohol Intake Frequency:: holidays/special occasions only Substance Use Type: denies use Occupational Status: unemployed Housing: house Household Members: children Family Hx:: Cancer, Coronary Artery Disease, Diabetes, Heart Attack, Hyperlipidemia, Hypertension, Stroke, Thyroid Disorder ROS Obtained: Yes All systems reviewed & no additional complaints - Constitutional Constitutional: Denies chills, Denies fever(s) - Integumentary/Breasts Skin/Breast: Reports as per HPI - Neurologic Neurologic: Denies tingling/numbness/burning sensations Physical Exam - G
[2022-01-31 15:25] VITALS: BP 157/87; PULSE 120; RESP 20; TEMP 37.4; O2SAT 96; BMI 30.5
[2022-01-31 16:33] VITALS: BP 157/87; PULSE 120; RESP 20; TEMP 37.4
== END 2022-01-31 16:37 | disposition home or self-care (01) ==
PROVIDERS: Emergency Provider Nurse Practitioner Family; PCP Nurse Practitioner
DX: S61.210A Laceration without foreign body of right index finger without damage to nail, initial encounter (principal); W26.0XXA Contact with knife, initial encounter
CPT/HCPCS: 12001; 99213; G0463

== ENCOUNTER → 2022-03-13 06:09 | Outpatient (CLI) | payer OTHER, SELFPAY ==
[2022-03-12 18:38] LABS: Basophils # 0.1 K/mm3 (0-0.2); Basophils % 0.8 % (0.1-2.0); Eosinophils # 0.1 K/mm3 (0.0-0.4); Eosinophils % 0.8 % (0.1-12.0); Hematocrit 42.9 % (37.0-47.0); Hemoglobin 14.2 g/dL (12.2-16.2); Lymphocytes # 2.4 K/mm3 (0.7-4.5); Lymphocytes % 14.4 % (10-50); Mean Corpuscular HGB Conc 33.1 g/dL (31.8-35.4); Mean Corpuscular Hemoglobin 32.2 pg (27.0-31.2); Mean Corpuscular Volume 97.2 fl (81-99); Mean Platelet Volume 8.3 fl (7.4-10.4); Monocytes # 0.9 K/mm3 (0.1-1.0); Monocytes % 5.4 % (1.7-9.3); Neutrophils # 13.1 K/mm3 (1.8-7.8); Neutrophils % 78.7 % (37.0-80.0); Platelet Count 344 K/mm3 (142-424); Red Blood Count 4.41 M/mm3 (4.20-5.40); Red Cell Distribution Width 13.4 % (11.5-17.5); White Blood Count 16.7 K/mm3 (4.8-10.8)
[2022-03-12 19:02] LABS: MANUAL DIFFERENTIAL MANUAL DIFFERENTIAL (MANUAL DIFF)
[2022-03-12 19:17] LABS: HCG,Quantitative 29 mIU/ml (0-5.42)
[2022-03-12 23:05] LABS: Lymphocytes % 19 % (10-50); Monocytes % 2 % (2-9); Neutrophils % 79 % (42-76); Platelet Estimate Normal; RBC Morphology Normal; Total Cells Counted 100
[2022-03-14 06:14] LABS: HIV Screen 4th Generation wRfx Non Reactive (Non Reactive); Hepatitis B Surface Antigen Negative (Negative); Hepatitis C Antibody <0.1 s/co ratio (0.0-0.9); Rubella Antibodies, IgG <0.90 index (Immune >0.99)
[2022-03-14 08:29] LABS: Progesterone 20.1 ng/mL (.)
[2022-03-14 11:25] LABS: Rapid Plasma Reagin Ab Titer Non Reactive (NonRea<1:1)
== END ==
PROVIDERS: Visit Provider Obstetrics & Gynecology
DX: Z34.90 Encounter for supervision of normal pregnancy, unspecified, unspecified trimester (principal)
CPT/HCPCS: 36415; 84144; 84702; 85007; 85025; 86592; 86703; 86762; 86850; 87086; 87340; 87380; G0432

== ENCOUNTER → 2022-03-15 14:24 | Outpatient (CLI) | payer OTHER, SELFPAY ==
[2022-03-15 15:22] LABS: HCG Qualitative, Serum Positive (Negative)
[2022-03-16 08:57] LABS: HCG,Quantitative 71 mIU/ml (0-5.42)
[2022-03-17 08:14] LABS: Progesterone 17.2 ng/mL (.)
== END ==
PROVIDERS: PCP Nurse Practitioner; Visit Provider Obstetrics & Gynecology
DX: Z34.90 Encounter for supervision of normal pregnancy, unspecified, unspecified trimester (principal)
CPT/HCPCS: 36415; 84144; 84702; 84703

== ENCOUNTER → 2022-03-26 09:57 | Outpatient (CLI) | payer OTHER, SELFPAY ==
[2022-03-26 11:39] LABS: HCG,Quantitative 8765 mIU/ml (0-5.42)
[2022-03-27 08:15] LABS: Progesterone 20.1 ng/mL (.)
== END ==
PROVIDERS: PCP Nurse Practitioner; Visit Provider Obstetrics & Gynecology
DX: Z34.90 Encounter for supervision of normal pregnancy, unspecified, unspecified trimester (principal)
CPT/HCPCS: 36415; 84144; 84702

== ENCOUNTER → 2022-05-07 16:38 | Outpatient (CLI) | payer OTHER, SELFPAY ==
[2022-05-10 05:22] LABS: Neisseria gonorrhoeae, NAA Negative (Negative)
== END ==
PROVIDERS: Visit Provider Obstetrics & Gynecology
DX: O09.91 Supervision of high risk pregnancy, unspecified, first trimester (principal)
CPT/HCPCS: 87491; 87591

== ENCOUNTER → 2022-07-09 13:02 | Outpatient (CLI) | payer OTHER, SELFPAY ==
--- NOTE | 2022-07-09 13:03 | US_ITS ---
FINAL REPORT CLINICAL HISTORY: 20 week anatomy scan FINDINGS: There is a single live intrauterine gestation. Presentation is cephalic. The cervix is closed and measures 4.1 cm. Placenta is posterior, grade 1. movement is noted. Heart rate is measured at 153 beats per minute. Three-vessel cord with satisfactory umbilical cord insertion. Four-chamber heart is noted. brain and ventricles are unremarkable. Chest and diaphragm are unremarkable. ABDOMEN: Both kidneys are unremarkable. Stomach is unremarkable. SPINE: No anomalies identified. Both arms and legs noted. AMNIOTIC FLUID: Appropriate amount. MEASUREMENTS: ULTRASOUND AGE: 20 weeks 6 days. GESTATION AGE: 20 weeks 6 days. ESTIMATED WEIGHT: 402 g GROWTH PERCENTILE: 60% LMP percentile BPD: 4.7 cm corresponding with 20 weeks 3 days. OFD: 6.3 cm corresponding with 21 weeks 1 days. HC: 17.6 cm corresponding with 20 weeks 1 days. AC: 16.6 cm corresponding with 21 weeks 5 days. FL: 3.5 cm corresponding with 21 weeks 0 days. CEREBELLUM: 2.1 cm corresponding with 20 weeks 6 days. HUMERUS: 3.4 cm corresponding with 21 weeks 4 days. HC/AC: 1.06 CI: 75% FL/BPD: 73% FL/AC: 21% IMPRESSION: Single living IUP with an ultrasound age of 20 weeks 6 days. No gross anomalies noted. Reviewed, Interpreted and Dictated by Clinton Guillermo MD Transcribed by Anne Zaragoza Authenticated and [facility]
== END ==
PROVIDERS: PCP Obstetrics & Gynecology; Visit Provider Obstetrics & Gynecology
DX: Z34.90 Encounter for supervision of normal pregnancy, unspecified, unspecified trimester (principal); Z3A.20 20 weeks gestation of pregnancy
CPT/HCPCS: 76811

== ENCOUNTER 2022-07-11 12:16 | Emergency (ER) | payer OTHER, SELFPAY ==
[2022-07-11 13:15] VITALS: BP 143/73; PULSE 99; RESP 18; TEMP 36.9; O2SAT 99; BMI 31.9
--- NOTE | 2022-07-11 13:31 | EXP.UTC ---
Discharge Plan Disposition Patient Disposition: Home, Self-Care Condition: Good Prescriptions Prescriptions: No Action Flintstones Gummies Tablet,Chewable PO citalopram [Celexa] 20 mg tablet 20 mg PO DAILY Referrals Follow up/Referrals: Angela Guzman [Primary Care Provider] - See instructions Activity Restrictions/Add. Instructions Additional Instructions/Restrictions: *Monitor Temp, Over the counter Motrin or Tylenol as directed/as needed Tylenol every 4 hours and Motrin every 6 hours (as long as your family doctor has told you that you can take it) for fever or pain. and straight to ER if unable to lower temp less than 101.0 after medication given *Warm salt water gargles may help to soothe the throat *Throat Lozenges? *Warm fluids like tea with honey may help to soothe the throat? *Sleep elevated *Humidifier/Vaporizer Your throat swab was sent for culture. Those results are typically sent to your primary care. Be sure to follow up in 2-3 days with your family doctor/primary care physician if no improvement so they can review those result and treat if necessary. If you don?t have a primary care doctor, I recommend you get one but in the mean time, you will have to return to a walk in clinic Follow up IMMEDIATELY for new or worsening symptoms or no Noticeable improvement over the next 48-72 hours. 911 for difficulty breathing or swallowing You were tested for today for COVID19 your test result should be back in the next 24-48 hours, you may check your results on the [facility] [employer] Health Portal Clinical Impressions Clinical Impression: Viral upper respiratory tract infection with cough Stand Alone Forms Stand Alone Forms: Work/School Release Instructions Patient Instructions: Cough, DI for Viral Upper Respiratory Infection -- Adult Discharge ED [place] [facility] [place] General Stated complaint: Headache, sore throat, bodyaches, congestion Time Seen by Provider: 07/11/22 13:31 History of Present Illness Provider Complaint: Patient states that she has been having sore throat, headache, body aches, chills and nasal congestion states that today she was still feeling bad States that her and her child have been having similar symptoms States that they think they may have been around someone with flu and RSV States that she is 22wks OB Related Data Home Medications Medication Instructions Recorded Confirmed pediatric multivitamin no.49 tab PO 03/12/22 07/09/22 (Flintstones Gummies chewable tablet) citalopram 20 mg tablet (Celexa) 20 mg PO DAILY Depression 07/11/22 07/11/22 Allergies Allergy/AdvReac Type Severity Reaction Status Date / Time latex [LATEX] Allergy Unknown Verified 07/09/22 14:11 [facility] Disclaimer: The information contained in this section may have been updated after the patient was seen, as this information can be updated by other users. Medical History (Updated 07/11/22 @ 13:54 by Coco Louie APRN) Depression Diabetes mellitus, type 2 Kidney stone Screening for genetic disease carrier status Sexually transmitted disease (STD) Social History Smoking Status: Current every day smoker tobacco type: cigarettes packs per day: 0 alcohol intake: never substance use type: denies use current occupational status: unemployed Travel in the last 8 weeks: None household members: children housing: house caffeine: Yes ROS Obtained: Yes All systems reviewed & no additional complaints except as documented and Yes Systems reviewed as appropriate & no additional complaints except as documented Constitutional Constitutional: Reports system reviewed and no additional complaints, except as documented, Reports as per HPI, Reports body ache, Reports chills and Reports headache(s) ENT Ears, Nose, Mouth, and Throat: Reports system reviewed and no additional complaints,
[2022-07-11 13:43] LABS: UTC Strep Screen (Rapid) Negative (Negative)
[2022-07-11 14:04] VITALS: BP 143/73; PULSE 99; RESP 18; TEMP 36.9; O2SAT 99
[2022-07-11 14:13] LABS: Adenovirus,PCR Not Detected (NotDetected); Bordetella Pertussis Not Detected (NotDetected); Chlamydophila Pneumoniae, PCR Not Detected (NotDetected); Coronavirus 19, PCR Not Detected (NotDetected); Coronavirus 229E Not Detected (NotDetected); Coronavirus NL63 Not Detected (NotDetected); Coronavirus OC43 Not Detected (NotDetected); Coronovirus HKU1,PCR Not Detected (NotDetected); Human Metapneumovirus Not Detected (NotDetected); Influenza A, PCR Not Detected (NotDetected); Influenza AH1, 2009 Not Detected (NotDetected); Influenza AH1, PCR Not Detected (NotDetected); Influenza AH3,PCR Not Detected (NotDetected); Influenza B, PCR Not Detected (NotDetected); Mycoplasma Pneumoniae, PCR Not Detected (NotDetected); Parainfluenza 1, PCR Not Detected (NotDetected); Parainfluenza 2, PCR Not Detected (NotDetected); Parainfluenza 3, PCR Not Detected (NotDetected); Parainfluenza 4, PCR Not Detected (NotDetected); Respiratory Syncytial Virus Not Detected (NotDetected)
[2022-07-12 23:38] LABS: Rhinovirus/Enterovirus Detected (NotDetected)
== END 2022-07-11 14:05 | disposition home or self-care (01) ==
PROVIDERS: Emergency Provider Nurse Practitioner; PCP Nurse Practitioner Family
DX: R51.9 Headache, unspecified (principal); R05.9 Cough, unspecified; B34.1 Enterovirus infection, unspecified
CPT/HCPCS: 87581; 87632; 87798; 87880; 99212; C9803; G0463; U0003; U0005

== ENCOUNTER → 2022-08-13 09:01 | Outpatient (CLI) | payer OTHER, SELFPAY ==
[2022-08-13 09:19] LABS: Basophils # 0.1 K/mm3 (0-0.2); Basophils % 0.4 % (0.1-2.0); Eosinophils # 0.2 K/mm3 (0.0-0.4); Eosinophils % 1.3 % (0.1-12.0); Hematocrit 39.4 % (37.0-47.0); Lymphocytes # 1.8 K/mm3 (0.7-4.5); Lymphocytes % 11.8 % (10-50); Mean Platelet Volume 8.2 fl (7.4-10.4); Monocytes # 0.9 K/mm3 (0.1-1.0); Monocytes % 5.5 % (1.7-9.3); Neutrophils # 12.6 K/mm3 (1.8-7.8); Platelet Count 278 K/mm3 (142-424); Red Blood Count 4.19 M/mm3 (4.20-5.40); Red Cell Distribution Width 13.6 % (11.5-17.5); White Blood Count 15.5 K/mm3 (4.8-10.8)
[2022-08-13 09:20] LABS: MANUAL DIFFERENTIAL MANUAL DIFFERENTIAL (MANUAL DIFF)
[2022-08-13 09:27] LABS: Lymphocytes % 11 % (10-50); Monocytes % 6 % (2-9); Neutrophils % 83 % (42-76); Platelet Estimate Normal; RBC Morphology Normal; Total Cells Counted 100
[2022-08-13 09:32] LABS: Glucose,Fasting 100 mg/dl (74-100)
[2022-08-13 11:04] LABS: Glucose 1 Hour 174 mg/dL (74-100)
== END ==
PROVIDERS: PCP Nurse Practitioner Family; Visit Provider Obstetrics & Gynecology
DX: Z34.90 Encounter for supervision of normal pregnancy, unspecified, unspecified trimester (principal)
CPT/HCPCS: 36415; 82951; 85007; 85025

== ENCOUNTER 2022-09-05 11:55 | Outpatient (CLI) | payer OTHER, SELFPAY ==
[2022-09-05 12:27] LABS: Basophils % 0.3 % (0.1-2.0); Eosinophils # 0.2 K/mm3 (0.0-0.4); Eosinophils % 1.5 % (0.1-12.0); Hematocrit 36.8 % (37.0-47.0); Hemoglobin 12.4 g/dL (12.2-16.2); Lymphocytes # 1.5 K/mm3 (0.7-4.5); Lymphocytes % 11.9 % (10-50); Mean Corpuscular HGB Conc 33.7 g/dL (31.8-35.4); Mean Corpuscular Hemoglobin 31.7 pg (27.0-31.2); Mean Corpuscular Volume 94.1 fl (81-99); Mean Platelet Volume 8.1 fl (7.4-10.4); Monocytes # 0.8 K/mm3 (0.1-1.0); Monocytes % 6.4 % (1.7-9.3); Neutrophils # 10.1 K/mm3 (1.8-7.8); Neutrophils % 79.9 % (37.0-80.0); Platelet Count 267 K/mm3 (142-424); Red Blood Count 3.91 M/mm3 (4.20-5.40); Red Cell Distribution Width 13.7 % (11.5-17.5); White Blood Count 12.7 K/mm3 (4.8-10.8)
[2022-09-05 12:39] LABS: Chloride 108 mmol/L (98-107); Sodium 135 mmol/L (136-145)
[2022-09-05 12:40] LABS: Potassium 3.9 mmoL/L (3.5-5.1)
[2022-09-05 12:42] LABS: Alanine Aminotransferase 15 U/L (12-78); Albumin Level 3.5 g/dl (3.5-5.0); Albumin/Globulin Ratio 1.3 (1.1-1.8); Alkaline Phosphatase 89 U/L (38-126); Anion Gap 10.9 mEq/L (5-15); Aspartate Amino Transferase 21 U/L (14-36); Bilirubin,Total 0.4 mg/dl (0.2-1.3); Blood Urea Nitrogen 9 mg/dl (7-17); Calcium 8.8 mg/dl (8.4-10.2); Carbon Dioxide 20 mmol/L (22.0-30.0); Estimated Glomerular Filt Rate 189 ml/min (>60); GFR (African American) 228 ML/MIN (>60); Globulin 2.6 g/dL (1.3-3.2); Glucose 85 mg/dl (74-100); Total Protein,Serum 6.1 g/dl (6.3-8.2)
[2022-09-05 13:35] VITALS: BP 125/73; PULSE 89; RESP 18; TEMP 36.1; O2SAT 99
== END 2022-09-05 13:45 | disposition home or self-care (01) ==
LOC: LAB 11:55 → INF 13:37
PROVIDERS: PCP Nurse Practitioner; Visit Provider Obstetrics & Gynecology
DX: O26.899 Other specified pregnancy related conditions, unspecified trimester (principal); R03.0 Elevated blood-pressure reading, without diagnosis of hypertension; Z67.91 Unspecified blood type, Rh negative
CPT/HCPCS: 36415; 80053; 85025; 96372; J2790

== ENCOUNTER → 2022-09-26 14:26 | Outpatient (CLI) | payer OTHER, SELFPAY ==
--- NOTE | 2022-09-26 14:26 | US_ITS ---
FINAL REPORT CLINICAL HISTORY: LGA, SASHA, Gestational diabetes FINDINGS: There is a single live intrauterine gestation. Presentation is cephalic. Cervix length is 3.18 cm. Placenta is posterior/lateral grade 2. movement is noted. Heart rate is detected at 143 beats per minute. The amniotic fluid index is 14.9 cm. MEASUREMENTS: ULTRASOUND AGE: 35 weeks 5 days. GESTATION AGE: 32 weeks 1 day. ESTIMATED WEIGHT: 2026 g GROWTH PERCENTILE: 57 % BPD: 8.15 cm corresponding to 32 weeks 6 days. OFD: 10.40 cm corresponding to 32 weeks 4 days. HC: 29.35 cm corresponding to 32 weeks 3 days. AC: 28.79 cm corresponding to 32 weeks 6 days. FL: 6.29 cm corresponding to 32 weeks 4 days. HC/AC: 1.02 CI: 78% FL/BPD: 77% FL/AC: 22% BIOPHYSICAL PROFILE SCORE Breathin Movement: 2 Tone: 2 Fluid volume: 2 IMPRESSION: Single living IUP with an ultrasound age of 32 weeks 5 days. Biophysical profile score 8 of 8 Reviewed, Interpreted and Dictated by Ariana Latif MD Transcribed by Gege Lubin Authenticated and [facility]
== END ==
PROVIDERS: PCP Nurse Practitioner; Visit Provider Obstetrics & Gynecology
DX: O24.419 Gestational diabetes mellitus in pregnancy, unspecified control (principal); O28.8 Other abnormal findings on antenatal screening of mother
CPT/HCPCS: 76816; 76819

== ENCOUNTER → 2022-10-24 22:32 | Outpatient (CLI) | payer OTHER, SELFPAY | PROVIDERS: PCP Obstetrics & Gynecology; Visit Provider Obstetrics & Gynecology | DX: O24.419 Gestational diabetes mellitus in pregnancy, unspecified control (principal) | CPT/HCPCS: 86403 ==

== ENCOUNTER 2022-11-03 02:53 | Outpatient (CLI) | payer OTHER, SELFPAY ==
[2022-11-03 03:13] VITALS: BMI 37.5
[2022-11-03 03:15] VITALS: BP 133/78; PULSE 95; RESP 18; TEMP 36.9; O2SAT 97
[2022-11-03 03:22] LABS: Microscopic, Urine URINE MICROSCOPIC (MICROSCOPIC)
[2022-11-03 03:25] LABS: Appearance,Urine CLOUDY (Clear); Bilirubin,Urine Negative (Negative); Blood, Urine Negative (Negative); Color,Urine YELLOW (Yellow); Glucose,Urine (UA) Negative (Negative); Ketones,Urine 2+ (Negative); Leukocyte Esterase,Urine Negative (Negative); Nitrate,Urine Negative (Negative); Protein,Urine Negative (Negative); Specific Gravity, Urine >= 1.030 (1.005-1.030)
[2022-11-03 03:36] LABS: Amphetamine/Metha Screen,Urine Negative ng/ml (<1000); Barbiturates Screen,Urine Negative ng/ml (<200)
[2022-11-03 03:37] LABS: Benzodiazepines Screen,Urine Negative ng/ml (<200)
[2022-11-03 03:38] LABS: Cannabinoid Screen,Urine Negative ng/ml (<50); Cocaine Screen,Urine Negative ng/ml (<300)
[2022-11-03 03:39] LABS: Methadone Screen,Urine Negative ng/ml (<300)
[2022-11-03 03:40] LABS: Opiate Screen,Urine Negative ng/ml (<300); Phencyclidine Screen,Urine Negative ng/ml (<25)
[2022-11-03 03:41] LABS: Bacteria,Urine 1+ /lpf; WBC,Urine Occasional #/hpf (0-3)
[2022-11-03 03:57] VITALS: BP 133/78; PULSE 95; RESP 18; TEMP 36.9; O2SAT 97; BMI 37.5
== END 2022-11-03 05:05 | disposition home or self-care (01) ==
LOC: OBOUT 02:55 → OB 02:55
PROVIDERS: PCP Nurse Practitioner; Visit Provider Obstetrics & Gynecology
DX: O60.03 Preterm labor without delivery, third trimester (principal); Z3A.37 37 weeks gestation of pregnancy
CPT/HCPCS: 59025; 80305; 81001; 96365; G0463

== ENCOUNTER → 2022-11-08 11:21 | Outpatient (CLI) | payer OTHER, SELFPAY ==
[2022-11-08 09:44] LABS: Fetal Membrane Rupture (Rapid) Negative (Negative)
== END ==
PROVIDERS: Visit Provider Obstetrics & Gynecology
DX: Z34.90 Encounter for supervision of normal pregnancy, unspecified, unspecified trimester (principal)
CPT/HCPCS: 84112

== ENCOUNTER 2022-11-14 05:02 | Inpatient (IN) | payer OTHER, SELFPAY ==
[2022-11-14 05:06] VITALS: BP 142/65; PULSE 95; RESP 18; TEMP 36.7; O2SAT 95; BMI 37.3; BMI 37.5
[2022-11-14 05:43] LABS: Coronavirus 19, PCR Not Detected (NotDetected); Influenza A, PCR Not Detected (NotDetected); Influenza B, PCR Not Detected (NotDetected)
[2022-11-14 05:43] LABS: Microscopic, Urine URINE MICROSCOPIC (MICROSCOPIC)
[2022-11-14 05:48] LABS: Appearance,Urine SL CLOUDY (Clear); Bilirubin,Urine Negative (Negative); Blood, Urine Negative (Negative); Color,Urine YELLOW (Yellow); Glucose,Urine (UA) Negative (Negative); Ketones,Urine Negative (Negative); Leukocyte Esterase,Urine Negative (Negative); Nitrate,Urine Negative (Negative); Protein,Urine TRACE (Negative); Specific Gravity, Urine 1.025 (1.005-1.030)
[2022-11-14 05:54] LABS: Basophils # 0.1 K/mm3 (0-0.2); Basophils % 0.4 % (0.1-2.0); Eosinophils # 0.1 K/mm3 (0.0-0.4); Eosinophils % 0.7 % (0.1-12.0); Hematocrit 37.8 % (37.0-47.0); Hemoglobin 12.7 g/dL (12.2-16.2); Lymphocytes # 2.2 K/mm3 (0.7-4.5); Mean Corpuscular HGB Conc 33.7 g/dL (31.8-35.4); Mean Corpuscular Hemoglobin 31.3 pg (27.0-31.2); Mean Corpuscular Volume 92.8 fl (81-99); Mean Platelet Volume 8.8 fl (7.4-10.4); Monocytes # 0.9 K/mm3 (0.1-1.0); Monocytes % 7.4 % (1.7-9.3); Neutrophils # 9.6 K/mm3 (1.8-7.8); Neutrophils % 74.5 % (37.0-80.0); Platelet Count 249 K/mm3 (142-424); Red Blood Count 4.07 M/mm3 (4.20-5.40); Red Cell Distribution Width 14.3 % (11.5-17.5); White Blood Count 12.9 K/mm3 (4.8-10.8)
[2022-11-14 05:58] LABS: Bacteria,Urine Trace /lpf; Sperm,Urine OCC /lpf; WBC,Urine Occasional #/hpf (0-3)
[2022-11-14 06:00] LABS: Benzodiazepines Screen,Urine Negative ng/ml (<200)
[2022-11-14 06:01] LABS: Amphetamine/Metha Screen,Urine Negative ng/ml (<1000); Barbiturates Screen,Urine Negative ng/ml (<200)
[2022-11-14 06:02] LABS: Cannabinoid Screen,Urine Negative ng/ml (<50); Cocaine Screen,Urine Negative ng/ml (<300)
[2022-11-14 06:03] LABS: Methadone Screen,Urine Negative ng/ml (<300)
[2022-11-14 06:04] LABS: Opiate Screen,Urine Negative ng/ml (<300); Phencyclidine Screen,Urine Negative ng/ml (<25)
--- NOTE | 2022-11-14 07:19 | EXP.OB.APHP ---
OB - H&P: HPI Antepartum History of Present Illness Chief complaint: Induction of labor History of present illness: Ms Yajaira Franklin is a 27 yo at 39w1d who presents to [facility] for scheduled induction of labor secondary to Gestational Diabetes. She is diet controlled gestational diabetic. She admits to low back pain. Baby is very active. Growth ultrasound 09/26/22 demonstrated EFW 57 %ile. She has had good care. GBS negative. History of Present Criteria for establishing EDC:: LMP confirmed by 1st trimester US care: good care Ultrasounds: normal mid trimester US Obstetrical complications: gestational diabetes Medical complications: none Labs Blood type: A (-) negative Rubella: nonimmune RPR/VDRL: nonreactive GBS status: negative HBsAG: negative PFSH PFS Disclaimer: The information contained in this section may have been updated after the patient was seen, as this information can be updated by other users. Medical History (Updated 11/14/22 @ 09:23 by Helen Mcneill DO) Depression Gestational diabetes mellitus Kidney stone with 39 completed weeks gestation Screening for genetic disease carrier status Sexually transmitted disease (STD) Tobacco use affecting , antepartum Surgical History H/O tubal ligation History of reversal of tubal ligation History of sinus surgery History of tonsillectomy Family History Other Asthma Cancer Diabetes Heart attack Hyperlipidemia Hypertension Thyroid disorder Social History Smoking Status: Current every day smoker tobacco type: cigarettes packs per day: 0 alcohol intake: never substance use type: denies use current occupational status: unemployed Travel in the last 8 weeks: None household members: children housing: house caffeine: Yes Review of Systems Review of Systems Review of systems:: pertinent systems reviewed and negative unless documented below Meds Home Medications and Allergies Home Medications Medication Instructions Recorded Confirmed Type citalopram 20 mg tablet (Celexa) 20 mg PO DAILY Depression 07/11/22 11/14/22 History cyclobenzaprine 5 mg tablet 5 mg PO BID PRN muscle spasm #20 10/31/22 11/14/22 Rx tabs New Prescriptions to Start Prescriptions: Allergies Allergy/AdvReac Type Severity Reaction Status Date / Time latex [LATEX] Allergy Unknown Verified 11/08/22 08:29 OB - H&P: Exam Physical Exam Vital signs: Temp Pulse Resp BP Pulse Ox 98.1 F 95 H 18 142/65 H 95 11/14/22 05:06 11/14/22 05:06 11/14/22 05:06 11/14/22 05:06 11/14/22 05:06 Constitutional no acute distress Routine HEENT Exam Head: Present normocephalic and atraumatic Eye: Absent conjunctivae pink ENT: Present mucous membranes moist Routine Neck Exam Present full ROM Routine Respiratory Exam Present CTA bilaterally and normal respiratory effort Routine Cardiovascular Exam Present RRR Routine Abdominal Exam Present soft (Gravid); Absent tenderness Routine Extremities Exam Present full ROM; Absent edema or calf tenderness Routine Neurological Exam Present alert, oriented X3 and moving all extremities Detailed Labor and Delivery Exam Dilation (cm): 3 Effacement (%): 50 Cervix position: anterior station: -2 Consistency: soft Membranes: artificially ruptured (amniotomy performed at 0656 with [place] without difficulty) Amniotic fluid: clear Baseline heart rate: 140 monitor accelerations: Present monitor decelerations: None FPC variability: Moderate (11-25) Contraction frequency (min): 5 OB - Results Labs Labs: Short CBC 11/14/22 Range/Units 05:00 WBC 12.9 H (4.8-10.8) K/mm3 Hgb 12.7 (12.2-16.2) g/dL Hct 37.8 (37.0-47.0) % Plt Count 249 (1
--- NOTE | 2022-11-14 09:19 | EXP.DN ---
Delivery Note Delivery Date:: 11/14/22 Delivery Time:: 09:02 Anesthesia Type: None Was labor medically induced?: Yes Induction method: per pitocin protocol Gestational age (weeks): 39 Infant delivered prior to 39 weeks?: No Justification for early elective delivery:: Gestational Diabetes Gender: Male at 1 minute: 8 at 5 minutes: 8 Delivery Procedure:: Mom complete without epidural. Pushed for approximately 12 minutes. Head delivered spontaneously over intact perineum in ANABELLE position. No nuchal cord. Anterior shoulder delivered with gentle downward pressure. Posterior shoulder and remainder of body delivered spontaneously. Baby placed on maternal abdomen, mouth and nares bulb suctioned, warmed/dried and stimulated. Delayed cord clamping was performed for 60 seconds. Cord was clamped and cut by father of baby. Cord blood was obtained. Placenta delivered spontaneously and intact. First degree perineal laceration repaired with 3-0 Vicryl. Hemostasis noted. Mom and baby were skin to skin and doing well after delivery. Live male baby (baby's name is Anson) APGARs 8, 8 EBL 200 mL Placental Delivery Description: Spontaneous
--- NOTE | 2022-11-14 09:39 | HMH.PHAINT1 ---
Pharmacy Intervention Comments: Reconciled patient's home medications using pharmacy fill history and prior patient interview.
[2022-11-14 20:00] VITALS: BP 113/54; PULSE 66; RESP 18; TEMP 36.6; O2SAT 100
[2022-11-15 04:19] VITALS: BP 137/71; PULSE 90; RESP 18; TEMP 36.8; O2SAT 99
[2022-11-15 07:03] LABS: Basophils # 0.1 K/mm3 (0-0.2); Basophils % 0.5 % (0.1-2.0); Eosinophils # 0.2 K/mm3 (0.0-0.4); Eosinophils % 1.2 % (0.1-12.0); Hematocrit 34.1 % (37.0-47.0); Hemoglobin 11.2 g/dL (12.2-16.2); Lymphocytes # 2.5 K/mm3 (0.7-4.5); Mean Corpuscular Hemoglobin 31.2 pg (27.0-31.2); Mean Corpuscular Volume 94.6 fl (81-99); Mean Platelet Volume 8.3 fl (7.4-10.4); Monocytes % 6.6 % (1.7-9.3); Neutrophils % 74.7 % (37.0-80.0); Platelet Count 267 K/mm3 (142-424); Red Cell Distribution Width 14.5 % (11.5-17.5); White Blood Count 14.8 K/mm3 (4.8-10.8)
--- NOTE | 2022-11-15 09:12 | EXP.DC.SUM ---
General Admission date:: 11/14/22 Discharge date: 11/15/22 HPI HPI HPI: PPD # 1 s/p Feeling well. Pain controlled. She is breast feeding. Light lochia. Voiding without difficulty and passing flatus. Tolerating regular diet. Denies fever/chills, chest pain and shortness of breath. No headaches, lightheadedness/dizziness. No lower extremity swelling. Hospital Course Hospital Course Hospital Course: Ms Yajaira Franklin is a 27 yo at 39w1d who presents to [facility] for scheduled induction of labor secondary to Gestational Diabetes. She is diet controlled gestational diabetic. She admits to low back pain. Baby is very active. Growth ultrasound 09/26/22 demonstrated EFW 57 %ile. She has had good care. GBS negative. She underwent induction of labor with Pitocin. She had a normal spontaneous vaginal delivery on 11/14/22 at 0902. She delivered a live male baby (baby's name is Anson) weighing 7 lb 12 oz. APGARs 8, 8. EBL 200 mL. She did well . Light lochia. Breast feeding. Pain controlled. Voiding without difficulty and passing flatus. Vital signs stable. Heart regular rate and rhythm. Lungs clear to auscultation. Abdomen soft, nontender. No lower extremity swelling. Normal hospital course. She was discharged home on PPD # 1. Exam Data for Last 24 hours Vital signs and Labs for Last 24 Hours: Temp Pulse Resp BP Pulse Ox 98.3 F 90 18 137/71 99 11/15/22 04:19 11/15/22 04:19 11/15/22 04:19 11/15/22 04:19 11/15/22 04:19 Laboratory Results - last 24 hr 11/14/22 13:08: Screen Negative, Baby's Rh Status Positive, Rhogam Infusion Rhogam release 11/15/22 06:46: WBC 14.8 H, RBC 3.60 L, Hgb 11.2 L, Hct 34.1 L, MCV 94.6, MCH 31.2, MCHC 33.0, RDW 14.5, Plt Count 267, MPV 8.3, Neut % (Auto) 74.7, Lymph % (Auto) 17.0, Daniels % (Auto) 6.6, Eos % (Auto) 1.2, Baso % (Auto) 0.5, Neut # (Auto) 11.0 H, Lymph # (Auto) 2.5, Daniels # (Auto) 1.0, Eos # (Auto) 0.2, Baso # (Auto) 0.1 I & O for Last 24 hours: Intake & Output 11/12/22 11/13/22 11/14/22 11/15/22 23:59 23:59 23:59 23:59 Weight 204 lb 0.005 oz Constitutional Constitutional: no acute distress *Routine HEENT Exam Head: Present normocephalic and atraumatic Eye: Absent conjunctivae pink ENT: Present mucous membranes moist *Routine Neck Exam Neck: Present full ROM *Routine Respiratory Exam Respiratory: Present CTA bilaterally and normal respiratory effort *Routine Cardiovascular Exam Cardiovascular: Present RRR *Routine Abdominal Exam Abdominal: Present soft and normoactive bowel sounds; Absent tenderness or distended Comments: Uterine fundus firm and below umbilicus *Routine Rectal Exam Patient deferred: visual exam *Routine Exam Patient deferred: external exam *Routine Extremities Exam Extremities: Present full ROM; Absent edema or calf tenderness *Routine Neurological Exam Neurological: Present alert, oriented X3 and moving all extremities Routine Psychiatric Exam Psychiatric: Present normal affect and cooperative Results Data Completed and Pending Labs on day of discharge: Labs from last 24 hours 11/15/22 11/14/22 06:46 13:08 WBC 14.8 H RBC 3.60 L Hgb 11.2 L Hct 34.1 L MCV 94.6 MCH 31.2 MCHC 33.0 RDW 14.5 Plt Count 267 MPV 8.3 Neut % (Auto) 74.7 Lymph % (Auto) 17.0 Daniels % (Auto) 6.6 Eos % (Auto) 1.2 Baso % (Auto) 0.5 Neut # (Auto) 11.0 H Lymph # (Auto) 2.5 Daniels # (Auto) 1.0 Eos # (Auto) 0.2 Baso # (Auto) 0.1 Screen Negative Baby's Rh Status Positive Rhogam Infusion Rhogam release DS: Diagnosis Discharge Diagnosis (1) with 39 completed weeks gestation: Status: Acute (2) Gestational diabetes mellitus: Status: Acute Problem details: diet controlled (3) Tobacco use affecting , antepartum: Status: Acute (4) Rh negative status during : Status: Acute (5) Rubella non-immune status, antepa
== END 2022-11-15 14:15 | disposition home or self-care (01) | DRG 807 ==
PROVIDERS: Admitting Provider Obstetrics & Gynecology; PCP Nurse Practitioner; Visit Provider Obstetrics & Gynecology
DX: O24.410 Gestational diabetes mellitus in pregnancy, diet controlled (principal); Z37.0 Single live birth; O99.334 Smoking (tobacco) complicating childbirth; O99.344 Other mental disorders complicating childbirth; F32.A Depression, unspecified
CPT/HCPCS: 59409; 36415; 59025; 80305; 81001; 85025; 85461; 86850; 94761; C9803; G0283; J2790; U0003; U0005

== ENCOUNTER → 2023-07-22 13:54 | Outpatient (CLI) | payer OTHER, SELFPAY ==
--- NOTE | 2023-07-22 14:01 | US_ITS ---
FINAL REPORT CLINICAL HISTORY: PALP AREA RIGHT LOWER BACK COMPARISON: None FINDINGS: Sonographic images were obtained of the right lower back at the area of palpable abnormality. There is a 2.0 cm relatively hyperechoic focus which is noncystic and favored to represent a lipoma. IMPRESSION: 2.0 cm hyperechoic focus favored to represent lipoma. MRI could confirm. Reviewed, Interpreted and Dictated by Eldon George MD Transcribed by Alejandrina Lewis Authenticated and [facility]
== END ==
PROVIDERS: PCP Nurse Practitioner; Visit Provider Nurse Practitioner
DX: R22.2 Localized swelling, mass and lump, trunk (principal)
CPT/HCPCS: 76604

== ENCOUNTER 2024-08-08 03:46 | Emergency (ER) | payer OTHER, SELFPAY ==
[2024-08-08 03:47] VITALS: BP 140/88; PULSE 116; RESP 16; TEMP 36.6; O2SAT 99; BMI 35.6
--- NOTE | 2024-08-08 03:51 | XR_ITS ---
PROCEDURE INFORMATION: Exam: XR Left Ankle Exam date and time: 08/08/2024 4:17 AM Age: 29 years old Clinical indication: Injury or trauma; Fall; Other: Pain; Additional info: Fall, lateral malleolus ttp TECHNIQUE: Imaging protocol: Radiologic exam of the left ankle. Views: 3 or more views. COMPARISON: CR XR KNEE LT 3V 08/15/2021 11:26 AM FINDINGS: Bones/joints: The mortise joint space is symmetric. There is an acute hairline fracture along the distal fibular malleolus (below the syndesmosis). Soft tissues: Moderate soft tissue swelling overlying the lateral malleolus. IMPRESSION: There is an acute hairline fracture along the distal fibular malleolus (below the syndesmosis).
--- NOTE | 2024-08-08 03:51 | HMH.EDGENADL ---
Discharge Plan Disposition Patient Disposition: Home, Self-Care Condition: Good Prescriptions Prescriptions: No Action citalopram [Celexa] 20 mg tablet 20 mg PO DAILY Qty: 30 11RF Referrals Follow up/Referrals: Yuri Bravo DO [Staff Physician] - See instructions (left ankle pain/sprain) Provider,Referral, [Primary Care Provider] - See instructions Activity Restrictions/Add. Instructions Additional Instructions/Restrictions: You were evaluated in the ER and are appropriate for discharge at this time. Take Tylenol, ibuprofen if needed for pain, do not exceed the recommended dose on the bottle. Drink water and eat a small snack each time you take these medications to avoid side effects. Wear the ankle support if needed for comfort and support. Use the crutches if needed to help you get around. You have been referred to Dr. Baugh's office for orthopedic follow-up. Call them for an appointment in approximately 1 week. Also follow-up with your primary care doctor. Return to the ER with new, worsening, or otherwise concerning symptoms. Clinical Impressions Clinical Impression: Ankle pain, left Print Language Print Language: Citizen Of [place] Discharge ED Provider: Ness Flower General Adult HPI General Chief complaint: Extremity Injury, Lower Stated complaint: fall, L ankle injury Time Seen by Provider: 08/08/24 03:48 History of Present Illness HPI narrative: Otherwise healthy 29-year-old female with no known drug allergies presents to the ER with left ankle pain. She reports she fell earlier today and her foot twisted inward. She states she was able to walk it off and tolerated through the day, but tonight the pain was keeping her awake. She ambulated independently into the ER. She is complaining of pain in the left ankle, and points over the lateral malleolus stating she has maximal pain at that location. She has no numbness, tingling, or weakness. She denies any other injuries. She took Tylenol prior to arrival but is agreeable to receive ibuprofen as well. She does not want any stronger pain medications than that. Related Data Previous Rx's ?Medication ?Instructions ?Recorded citalopram 20 mg tablet (Celexa) 20 mg PO DAILY Depression #30 tabs 12/17/22 Allergies Allergy/AdvReac Type Severity Reaction Status Date / Time latex (LATEX) Allergy Unknown Verified 11/28/22 09:10 [facility] Disclaimer: The information contained in this section may have been updated after the patient was seen, as this information can be updated by other users. Medical History Depression Family history of trisomy 13 Third , baby with trisomy 13 Gestational diabetes mellitus diet controlled History of nephrolithiasis Kidney stone with 39 completed weeks gestation Screening for genetic disease carrier status 05/07/22 - [facility] carrier screen negative for 14 conditions tested including CF, Fragile X and SMA Sexually transmitted disease (STD) Tobacco use affecting , antepartum Surgical History H/O tubal ligation History of reversal of tubal ligation History of reversal of tubal ligation History of sinus surgery History of tonsillectomy Family History Other Asthma Cancer Diabetes Heart attack Hyperlipidemia Hypertension Thyroid disorder Social History Smoking Status: Current every day smoker tobacco type: cigarettes packs per day: 0 alcohol intake: never substance use type: denies use current occupational status: unemployed Travel in the last 8 weeks: None household members: children housing: house caffeine: Yes Have you lived/traveled outside [place] in past 30 days?: No Contact w/someone who lives/traveled outside [place] past 30 days?: No Exposure to someone with infectious disease in past 14 days?: No Do you have a fever (greater than 100.4 F or 38 C)?: No Have you tested positive for COVID-19: No Exposed to someone with COVID-19 in past 14 days?: No Do you have a sore throat?: No Do you have a cough?: No Do you have any weakness?: No Do you have any diarrhea?: No Are you experiencing any unusual bleeding?: No Do you have any muscle aches/pain?: No Do you have any abdominal pain?: No Are you experiencing loss of taste or smell?: No Other Medical History Have you received the Flu Vaccine for this season: No Have you received the Pneumonia Vaccine: No ROS Obtained: Yes Systems reviewed as appropriate & no additional complaints except as documented Per HPI Physical Exam General General appearance: alert and in no apparent distress Head Head exam: atraumatic and normocephalic Eye Eye exam: Present PERRL and EOMI ENT ENT exam: Present mucous membranes moist Neck Neck exam: Present normal inspection and full ROM Chest Chest inspection: Present symmetric chest wall rise Respiratory Respiratory exam: Absent respiratory distress or stridor Cardiovascular Cardiovascular exam: Present regular rate and normal rhythm Extremities Exam Extremities exam: Present full ROM (Intact range of motion of left ankle however patient does have pain with range of motion in all planes), tenderness (Tenderness to palpation over the lateral malleolus specifically posterior aspect), normal capillary refill and joint swelling (Mild swelling of left ankle); Absent edema Neurological Exam Neurological exam: Present alert and oriented X3; Absent motor sensory deficit Psychiatric Psychiatric exam: Present normal affect and normal mood Skin Skin exam: Present warm and dry Medical Decision Making Medical Records Medical records reviewed: Yes I reviewed the patient's medical records. Screening: Per USPSTF and CDC recommendations, given the prevalence of disease in our region, it is our hospital?s policy to screen for HIV and viral Hepatitis for all patients aged 18 and over and those with ongoing risk factors. MR Comment: Most recent encounter in our system was when patient had a follow-up in November 2022. She was 2 weeks status post vaginal delivery at that point. Plan was for Depo-Provera contraception. Alec Inquiry Pt receiving controlled substance: No Vital Signs: 08/08/24 03:47 08/08/24 04:39 Temperature 97.9 F 98.0 F Temperature Source Oral Oral Pulse Rate 90 Pulse Rate [Right Radial] 116 H Respiratory Rate 16 17 Blood Pressure 137/85 Blood Pressure [Right Arm] 140/88 Blood Pressure Mean [Right Arm] 105 Blood Pressure Source [Right Arm] Automatic Cuff Blood Pressure Position Sitting Blood Pressure Position [Right Arm] Supine 02 Sat by Pulse Oximetry 99 Oxygen Delivery Method Room Air Room Air Orders (Tests/Meds): ED MEDICATIONS Discontinued Medications Generic Name Dose Route Start Last Admin Trade Name Freq PRN Reason Stop Dose Admin Ibuprofen 600 mg 08/08/24 03:51 08/08/24 03:59 Ibuprofen 600 Mg Tablet PO 08/08/24 03:52 600 mg ONCE ONE Administration ORDERS Category Date Time Status Ankle XR - Left minimum 3 Views [XR ankle LT min 3V] Exams 08/08/24 03:51 Taken Stat Medical Decision Narrative: In summary, this otherwise healthy 29-year-old female presents to the emergency department today with left ankle pain and swelling after fall more than 12 hours prior to arrival. On initial evaluation patient is hemodynamically stable, afebrile, patient independently ambulated into the ER but does have tenderness to palpation at the posterior aspect of the lateral malleolus with swelling of the ankle, neurovascularly intact, no other injuries. Differential diagnosis includes but is not limited to fracture, dislocation, sprain, strain, other soft tissue injury. Based on these concerns, I ordered x-ray left ankle despite decreased suspicion for fracture since patient has been ambulatory since the time of injury. Patient is receiving ibuprofen in the ER. X-ray personally interpreted demonstrates no acute osseous injury, specifically I do not appreciate any fracture of the distal fibula or lateral malleolus. Radiology read is pending at this time, however I am comfortable discharging this patient based on my read. Patient was placed in a supportive brace and provided crutches. I gave her instructions on symptomatic monitoring and management, range of motion exercises, follow-up instructions, and strict return precautions for the ER. She indicated understanding and the patient was discharged in stable condition. Critical Care Critical Care Time Critical Care Time: No
[2024-08-08] MEDS: IBUPROFEN 600 MG TABLET PO (03:59)
--- NOTE | 2024-08-08 04:25 | PC.NURSE ---
xray done at bedside
[2024-08-08 04:39] VITALS: BP 137/85; PULSE 90; RESP 17; TEMP 36.7; O2SAT 97
== END 2024-08-08 04:47 | disposition home or self-care (01) ==
PROVIDERS: Emergency Provider Emergency Medicine
DX: M25.572 Pain in left ankle and joints of left foot (principal); W18.39XA Other fall on same level, initial encounter; Y93.9 Activity, unspecified
CPT/HCPCS: 73610; 99283